=== PATIENT | female | born 1955 | race Caucasian/White ===

== ENCOUNTER 2017-07-04 15:47 | Inpatient (IN) | payer SELFPAY ==
[2017-07-04] MEDS ORDERED: Sterile Water 10 ML ONE (16:21)
[2017-07-04] MEDS ORDERED: Sodium Chloride 0.9% 200 ML ONE (16:21)
[2017-07-04] MEDS ORDERED: Azithromycin 500 MG VIAL ONE (16:21)
[2017-07-04] MEDS ORDERED: cefTRIAXone\\ROCEPHIN 1 GM VIAL ONE (16:21)
[2017-07-04] MEDS ORDERED: Magnesium Sulfate 2 GM/100 ML BAG ONE (16:21)
[2017-07-04] MEDS ORDERED: methylPREDNISolone Sod Succ/PF 125 MG/2 ML VIAL ONE (16:21)
[2017-07-04] MEDS ORDERED: ISOVUE-370 76%-LOCM 1 ML ONE (16:37)
[2017-07-04 16:48] LABS: Mean Platelet Volume 8.2 fL (7.4-10.4); Red Blood Cell (RBC) Count 5.21 mill/uL (4.20-5.40)
[2017-07-04 17:08] LABS: Band 3 % (5-11); Neutrophil 58 % (42-75); Reactive Lymphocytes 7 % (0-10)
[2017-07-04] MEDS ORDERED: Albuterol Sulfate 2.5 mg/3 ml Neb ONE ×2 (17:53→17:56)
[2017-07-04] MEDS ORDERED: Ketorolac Tromethamine 30 MG/ML VIAL ONE (18:17)
[2017-07-04 18:19] LABS: Lactic Acid - Sepsis 2.7 mmol/L (0.5-2.2)
[2017-07-04 18:21] LABS: ALT (SGPT) 12 U/L (8-55); AST (SGOT) 18 U/L (5-34); Alkaline Phosphatase 71 U/L (40-150); Anion Gap 16 mmol/L (10-20); BUN (Urea Nitrogen) 7 mg/dL (9.8-20.1); Bilirubin, Total 0.2 mg/dL (0.2-1.2); CK (CPK) 109 U/L (29-168); Calc. Creatinine Clearance 0 mL/min (70-130); Calcium 8.9 mg/dL (7.8-10.44); Carbon Dioxide 21 mmol/L (23-31); Chloride 108 mmol/L (98-107); Estimated GFR-MDRD 88; Globulin 2.9 g/dL (2.4-3.5); Protein, Total 6.9 g/dL (6.0-8.3)
[2017-07-04 18:26] LABS: Troponin I Less than 0.010 ng/mL (< 0.028)
--- NOTE | 2017-07-04 19:16 | RAD ---
PA AND LATERAL CHEST: Date: 07-04-17 History: Dyspnea, history of COPD. Patient has had difficulty breathing for 4-5 days. Patient also n otes midback pain. Comparison: 04-27-13, 02-17-16 FINDINGS: Cardiac silhouette and pulmonary vasculature are within normal limits. The lungs are clear. There is eventration of the hemidiaphragm in the midline and left upper quadrant. Parenchymal opacity in the right midlung zone noted on more recent study of 02-17-16 is no longer seen on this exam and the danuta gs are clear on the current study. Minimal degenerative change is seen in the thoracic spine. Remote healed fracture right proximal humerus is again present. IMPRESSION: No acute cardiopulmonary process. POS: ROSA
[2017-07-04] MEDS ORDERED: Acetaminophen 325 MG TAB PO PRN (19:36)
[2017-07-04] MEDS ORDERED: Bisacodyl 5 MG TAB PO PRN (19:36)
[2017-07-04] MEDS ORDERED: Acetaminophen 650 MG Suppository PR PRN (19:36)
[2017-07-04 20:02] LABS: Bilirubin Negative (Negative); Blood, Urine Negative (Negative); Glucose, Urine (Dipstick) Negative (Negative); Ketone, Urine Negative (Negative); Nitrite Negative (Negative); Protein, Urine (Dipstick) Negative (Neg-Trace); Urobilinogen 0.2 mg/dL (0.2-1.0)
--- NOTE | 2017-07-04 20:09 | HP ---
PRIMARY CARE PHYSICIAN: Marcos Reinoso. CHIEF COMPLAINT: Shortness of breath. HISTORY OF PRESENT ILLNESS: Ms. Smith is a pleasant 61-year-old lady who was seen at [facility] on 07/04/2017. She reports that she has had difficulty breathing over the last 4-5 days. She reports that it has b een progressively worsening. She also reports pain in her midback. She denies fevers. She reports cough. She does not think that there is any sputum. She took DayQuil with no relief. She came to the emergency room because of ongoing shortness of breath and cough. In terms of the back pain, she is unable to characterize it further. The following complete review of systems was negative, unless otherwise mentioned in the HPI or belo w: Constitutional: Weight loss or gain, sense of well-being, ability to conduct usual activities, exer cise tolerance. Skin/Breast: Rash, itching, changes in hair growth or loss, nail changes, breast lumps, tenderness, swelling, nipple discharge. Eyes: Vision, double vision, tearing, blind spots, pain. ENT/Mouth: Headaches (location, time of onset, duration, precipitating factors), vertigo, lighthead edness, injury. Vision, double vision, tearing, blind spots, pain, nose bleeding, colds, obstruction , discharge, dental difficulties, gingival bleeding, dentures, neck stiffness, pain, tenderness, mas ses in thyroid or other areas. Cardiovascular: Precordial pain, substernal distress, palpitations, syncope, dyspnea on exertion, o rthopnea, nocturnal paroxysmal dyspnea, edema, cyanosis, hypertension, heart murmurs, varicosities, phlebitis, claudication. Respiratory: Pain, shortness of breath, wheezing, stridor, cough, hemoptysis, fever or night sweats . Gastrointestinal: Poor appetite, dysphagia, indigestion, abdominal pain, heartburn, eructation, yancy sea, vomiting, hematemesis, jaundice, constipation, or diarrhea, abnormal stools (rodri-colored, gail y, bloody, greasy, foul smelling), flatulence, hemorrhoids, recent changes in bowel habits. Genitourinary: Urgency, frequency, dysuria, nocturia, hematuria, polyuria, oliguria, unusual (or ch archie in) color of urine, stones, hesitancy, change in size of stream, dribbling, acute retention or incontinence, libido, potency. Musculoskeletal: Pain, swelling, redness or heat of muscles or joints, limitation, of motion, muscu lar weakness, atrophy, cramps. Neurologic/Psychiatric: Convulsions, paralyses, tremor, incoordination, paraesthesias, difficulties with memory of speech, sensory or motor disturbances, or muscular coordination (ataxia, tremor), em otional problems, anxiety, depression, previous psychiatric care, unusual perceptions, hallucination s. Allergy/Immunologic: Skin rash, anemia, bleeding tendency, polydipsia, polyuria, intolerance to hea t or cold. PAST MEDICAL HISTORY: Significant for chronic obstructive pulmonary disease, hypertension, and toba account information clerk use. PAST SURGICAL HISTORY: Significant for lumpectomy and removal of cyst from her arm. ALLERGIES: No known drug allergies. CURRENT MEDICATIONS: Lisinopril 10 mg daily, ProAir HFA 90 mcg 2 puffs as needed, Ventolin nebulize rs every 6 hours as needed. SOCIAL HISTORY: The patient smokes half to 1 pack of cigarettes a day. She drinks 2-3 beers a day. She denies recreational drug use. FAMILY HISTORY: No family history of premature coronary artery disease. PHYSICAL EXAMINATION: GENERAL: On examination, Ms. Smith is awake and alert, in respiratory distress. VITAL SIGNS: She is breathing at rate of 22 and saturating 100% on BiPAP. Her respiratory rate ear lier was 32. She is afebrile. Blood pressure is 166/107, pulse is 98. She is afebrile. EYES: No scleral icterus, no conjunctival pallor. ENT: Moist mucosal membranes, no oropharyngeal erythema or exudates. NECK: Supple, nontender, trachea midline, no thyromegaly. RESPIRATORY: Accessory muscles of breathing are active. Chest wall movements are symmetric bilater ally. LUNGS: Clear to auscultation without wheeze, rhonchi or crepitations. Markedly diminished entry of air at both lung bases. CARDIOVASCULAR: S1 and S2 are heard, regular. Peripheral pulses palpable. No carotid bruit, no pe ricardial rub. ABDOMEN: Soft, nontender. Bowel sounds heard, no hepatomegaly, no splenomegaly. LYMPHATIC: No cervical lymphadenopathy. SKIN: No rashes or subcutaneous nodules. PSYCHIATRIC: Anxious mood, patient is oriented to time, place and person. NEUROLOGIC: Cranial nerves II-XII are intact, deep tendon reflexes are 2+. MUSCULOSKELETAL: Power is 5/5 in all 4 extremities, normal range of movement at all major extremity joints. LABORATORY DATA: Ms. Smith's labs and investigations were reviewed. I reviewed her electrocardiog alexis, which shows sinus tachycardia, no ST changes to suggest an acute coronary syndrome. I also rev iewed her chest x-ray, which does not show any pulmonary infiltrates. Laboratory investigation show ed normal white count, elevated hemoglobin of 16.7, normal platelet count, normal sodium, decreased potassium of 3.4, normal creatinine, normal liver profile, elevated lactic acid of 2.7 and normal tr oponin I. ASSESSMENT AND PLAN: Ms. Smith is a pleasant 61-year-old lady who was seen at [facility] on 07/04/2017. Her problem list includes: 1. Acute respiratory failure: Most likely secondary to chronic obstructive pulmonary disease exace rbation. She is currently being treated with bilevel positive airway pressure machine. She will be admitted to the [facility]. 2. Chronic obstructive pulmonary disease exacerbation: We will treat with oxygen, steroids, bronch odilators, and antibiotics. Consult Pulmonology. 3. Hypertension: Resume home medications, monitor vital signs and titrate antihypertensives as nee ded. 4. Tobacco use: Patient has been counseled regarding tobacco cessation. Start replacement therapy . 5. Daily alcohol abuse: Start ASE protocol. 6. Hypokalemia: Replace potassium. Many thanks for allowing me to participate in your patient's care. Please feel free to contact me w ith any questions or concerns. LEVEL OF RISK: High. LEVEL OF COMPLEXITY: High.
[2017-07-04 20:15] LABS: Bacteria/HPF Rare-Few HPF (None Seen); Hyaline Casts/LPF NONE SEEN LPF (0-3 Hyaline); RBC/HPF 0-3 HPF (0-3)
[2017-07-04] MEDS: Nicotine 21 MG PATCH TD SCH (21:08)
--- NOTE | 2017-07-04 21:25 | CT ---
CT ANGIOGRAM THORAX WITH IV CONTRAST AND 3D RECONSTRUCTIONS: Date: 07-04-17 History: Dyspnea, difficulty breathing for 4-5 days. Mid back pain. FINDINGS: There are no filling defects seen in the pulmonary arteries to suggest a pulmonary embolus. Vascular calcifications are seen in the thoracic aorta, but the thoracic aorta is normal in caliber without evidence of an aortic dissection. Mediastinal structures have a normal CT appearance. There is dependent bibasilar atelectasis, but the lungs are otherwise clear. Visualized upper abdome n has a normal CT appearance. IMPRESSION: 1. No CT evidence of a pulmonary embolus. 2. Vascular calcifications in the thoracic aorta, but the thoracic aorta is normal in caliber withou t evidence of an aortic dissection. POS: ROSA
[2017-07-04] MEDS: NS 0.9% w/ 40 MEQ KCL 1,000 ML IV SCH (23:49)
[2017-07-05 00:08] LABS: Troponin I 0.014 ng/mL (< 0.028)
[2017-07-05 04:47] LABS: #Lymphocytes 0.6 thou/uL (1.20-3.40); #Monocytes 0.1 thou/uL (0.11-0.59); #Neutrophils 8.1 thou/uL (1.40-6.50); %Basophils 0.3 % (0.0-1.0); %Eosinophils 0.1 % (0.0-10.0); %Lymphocytes 6.3 % (21.0-51.0); %Monocytes 0.7 % (0.0-10.0); Hematocrit 46.6 % (36.0-47.0); Mean Platelet Volume 7.5 fL (7.4-10.4); Red Blood Cell (RBC) Count 4.88 mill/uL (4.20-5.40); White Blood Cell (WBC) Count 8.7 thou/uL (4.8-10.8)
[2017-07-05 05:27] LABS: Anion Gap 14 mmol/L (10-20); BUN (Urea Nitrogen) 10 mg/dL (9.8-20.1); Calc. Creatinine Clearance 82 mL/min (70-130); Calcium 8.8 mg/dL (7.8-10.44); Carbon Dioxide 24 mmol/L (23-31); Chloride 106 mmol/L (98-107); Estimated GFR-MDRD Greater than 90
[2017-07-05] MEDS: Enoxaparin Sodium 40 MG/0.4 ML SYRINGE SC SCH (08:45)
[2017-07-05] MEDS ORDERED: FLU VACC QS2017-18 36 mo. & older 0.5 ML SYRINGE IM ONE (09:00)
[2017-07-05] MEDS: NS 0.9% w/ 40 MEQ KCL 1,000 ML IV SCH (11:52)
--- NOTE | 2017-07-05 13:54 | PDOC.PN ---
- Subjective Encounter Start Date: 07/05/17 Encounter Start Time: 11:00 Pt seen for followup re: COPD exacerbation. Denies chest pain, nausea, vomiting or diarrhea. Dyspnea better. Still has cough. - Objective MAR Reviewed: Yes Vital Signs & Weight: Vital Signs (12 hours) Temp Pulse Resp BP BP Pulse Ox 07/05/17 12:58 109 H 20 100 07/05/17 11:39 97.9 F 94 16 165/90 H 100 07/05/17 08:44 88 171/97 H 07/05/17 07:35 97.6 F 88 22 H 100 07/05/17 07:30 97.6 F 97 16 175/85 H 100 07/05/17 06:43 82 18 99 07/05/17 04:00 98.1 F 80 20 130/67 100 Weight Admit Weight 124 lb 9.6 oz Weight 125 lb 6.4 oz I&O: 07/04/17 07/05/17 07/06/17 06:59 06:59 06:59 Intake Total 1465 1485 Output Total 350 350 Balance 1115 1135 Result Diagrams: 07/05/17 04:05 07/05/17 04:05 EKG Reviewed by me: Yes (Tele: NSR) Phys Exam - Physical Examination Constitutional: NAD HEENT: moist MMs, oral pharynx no lesions Neck: supple Respiratory: no wheezing, no rales, no rhonchi, clear to auscultation bilateral Diminished air entry [place] Cardiovascular: RRR, no rub Gastrointestinal: soft, non-tender, no distention, positive bowel sounds Musculoskeletal: pulses present Neurological: moves all 4 limbs Lymphatic: no nodes Psychiatric: normal affect, A&O x 3 Skin: no rash, normal turgor, cap refill <2 seconds Dx/Plan (1) COPD exacerbation Code(s): J44.1 - CHRONIC OBSTRUCTIVE PULMONARY DISEASE W (ACUTE) EXACERBATION Status: Acute (2) CKD (chronic kidney disease) stage 2, GFR 60-89 ml/min Code(s): N18.2 - CHRONIC KIDNEY DISEASE, STAGE 2 (MILD) Status: Chronic (3) Hypertension Code(s): I10 - ESSENTIAL (PRIMARY) HYPERTENSION Status: Chronic (4) Tobacco dependence Code(s): F17.200 - NICOTINE DEPENDENCE, UNSPECIFIED, UNCOMPLICATED Status: Chronic (5) Hypokalemia Code(s): E87.6 - HYPOKALEMIA Status: Resolved - Plan continue antibiotics, PT/OT, out of bed/ambulate, DVT proph w/lovenox * . Continue IV ceftriaxone, azithromycin. Continue steroids, bronchodilators, oxygen. Pt is off of Bilevel PAP. Monitor vital signs and titrate antihypertensives as needed. Continue nicotine replacement therapy. Review of Systems - Review of Systems Constitutional: negative: Fever, Chills, Sweats, Weakness, Malaise Respiratory: Cough, SOB with Excertion. negative: Dry, Shortness of Breath, Hemoptysis, Pleuritic Pain, Sputum, Wheezing Cardiovascular: negative: Chest Pain, Palpitations, Orthopnea, Paroxysmal Noc. Dyspnea, Edema, Light Headedness Gastrointestinal: negative: Nausea, Vomiting, Abdominal Pain, Diarrhea, Constipation, Melena, Hematochezia Genitourinary: negative: Dysuria, Frequency, Incontinence, Hematuria, Retention - Medications/Allergies Allergies/Adverse Reactions: Allergies Allergy/AdvReac Type Severity Reaction Status Date / Time No Known Allergies Allergy Verified 04/27/13 23:32 Medications: Current Medications Acetaminophen (Tylenol) 650 mg PO Q4H PRN PRN Reason: Headache/Fever or Pain Acetaminophen (Tylenol) 650 mg [place] Q4H PRN PRN Reason: Headache/Fever or Pain Albuterol/Ipratropium (Duoneb) 3 ml NEB [id number] PRN PRN Reason: SOB &/or Wheezing Albuterol/Ipratropium (Duoneb) 3 ml NEB [id number] RENITA Last Admin: 07/05/17 12:58 Dose: 3 ml Bisacodyl (Dulcolax) 10 mg PO DAILYPRN PRN PRN Reason: Constipation Enoxaparin Sodium (Lovenox) 40 mg SC 0900 RENITA Last Admin: 07/05/17 08:45 Dose: 40 mg Hydralazine HCl (Apresoline) 10 mg SLOW IVP Q6H PRN PRN Reason: SBP Greater Than 170 Last Admin: 07/05/17 08:44 Dose: 10 mg Azithromycin 500 mg/ Sodium (Chloride) 250 mls @ 250 mls/hr IVPB 1800 REINTA Ceftriaxone Sodium 1 gm/ (Sodium Chloride) 100 mls @ 200 mls/hr IVPB 1700 RENITA Potassium Chloride/Sodium Chloride (Ns 0.9% W/ 40 Meq Kcl) 1,000 mls @ 75 mls/ hr IV .[id number] [facility] Last Admin: 07/05/17 11:52 Dose: 1,000 mls Lisinopril (Zestril) 10 mg PO DAILY [facility] Methylprednisolone Sodium Succinate (Solu-Medrol) 40 mg IVP Q6HR [facility] Last Admin: 07/05/17 11:50 Dose: 40 mg Mometasone Furoate/Formoterol Fumar (Dulera 200 Mcg/5 Mcg Inhaler) 2 puff INH BID-RT [facility] Nicotine (Nicoderm Patch) 21 mg TD Q24HR [facility] Last Admin: 07/04/17 21:08 Dose: Not Given Sodium Chloride (Flush - Normal Saline) 10 ml IVF Q12HR [facility] Last Admin: 07/05/17 08:53 Dose: Not Given Sodium Chloride (Flush - Normal Saline) 10 ml IVF PRN PRN PRN Reason: Saline Flush
[2017-07-05] MEDS ORDERED: cefTRIAXone\\ROCEPHIN 1 GM in Sodium Chloride 0.9% 100 ML IVPB SCH (17:00)
[2017-07-05] MEDS ORDERED: Azithromycin 500 MG in Sodium Chloride 0.9% 250 ML 250 ML IVPB SCH (18:00)
[2017-07-05] MEDS ORDERED: Mometasone/Formoterol 120 PUFF INHALER INH SCH (18:30)
[2017-07-05] MEDS ORDERED: Melatonin 3 MG TAB PO PRN (19:56)
--- NOTE | 2017-07-05 20:05 | CON ---
DATE OF CONSULTATION: 07/05/2017 HISTORY OF PRESENT ILLNESS: Ms. Smith is a 61-year-old female. She has been here before with COPD exacerbation. She has never seen Pulmonary physician. Her last admission here was in January of last year. She smoked as much as 2 packs a day, but it is down to a pack or less a day. She presented with shortness of breath, requiring aggressive respiratory care. She says she is impr ronen. She wants to move out of the intermediate care unit, so she can see one of her grandchildren. PAST MEDICAL HISTORY: Remarkable for hypertension, smoking, and breast lumpectomy. MEDICATIONS: She is on lisinopril and does not have a nebulizer at home. She is only on Advair p.r .n. FAMILY HISTORY: Negative for lung disease at an early age. REVIEW OF SYSTEMS: Otherwise, negative except for purulent sputum, but she says it is improving. PHYSICAL EXAMINATION: VITAL SIGNS: She is afebrile, heart rate 95, respiratory rate 16, oximetry is 100% on 2 liters, blo od pressure 147/73. HEENT: Pupils are equal. Sclerae are anicteric. Dentition is poor. NECK: Supple. LUNGS: Remarkable for diffuse wheezes. HEART: Regular rhythm. S1 and S2 are normal. ABDOMEN: Soft and nontender. EXTREMITIES: Without clubbing, cyanosis, or edema. IMAGING: Chest CT angiogram shows atherosclerotic changes of her aorta, but no infiltrates, no thro mboembolic disease. LABORATORY DATA: White count 8.7, hemoglobin 15.1, platelets 213,000. Electrolytes are normal. IMPRESSION: Chronic obstructive pulmonary disease exacerbation with ongoing tobacco. PLAN: Add Wellbutrin. She does not need to be on IV antibiotics. We will decrease her steroid dos ing. We will transfer her out of the IMU to a medical bed.
[2017-07-05] MEDS: Nicotine 21 MG PATCH TD SCH (20:32)
[2017-07-05] MEDS: Bupropion 150 MG SR TAB PO SCH (20:32)
[2017-07-05] MEDS: Cefuroxime Axetil 250 MG TAB PO SCH (20:32)
[2017-07-05] MEDS ORDERED: Non-Formulary Item 1 EACH (Fluticasone/Salmeterol [Advair Diskus 250/50] 1 INH) IH SCH (21:00)
[2017-07-06] MEDS: NS 0.9% w/ 40 MEQ KCL 1,000 ML IV SCH ×3 (00:34→17:52)
[2017-07-06 05:53] LABS: Anion Gap 11 mmol/L (10-20); BUN (Urea Nitrogen) 8 mg/dL (9.8-20.1); Calc. Creatinine Clearance 87 mL/min (70-130); Calcium 9.3 mg/dL (7.8-10.44); Carbon Dioxide 22 mmol/L (23-31); Chloride 109 mmol/L (98-107); Estimated GFR-MDRD Greater than 90
[2017-07-06 06:21] LABS: Band 12 % (5-11); Hematocrit 49.4 % (36.0-47.0); Mean Platelet Volume 8.4 fL (7.4-10.4); Metamyelocyte 1 % (0-0); Neutrophil 79 % (42-75); Reactive Lymphocytes 1 % (0-10); Red Blood Cell (RBC) Count 5.09 mill/uL (4.20-5.40)
[2017-07-06 06:34] VITALS: BMI 21.2
[2017-07-06] MEDS: Bupropion 150 MG SR TAB PO SCH ×2 (08:04→20:32)
[2017-07-06] MEDS: Cefuroxime Axetil 250 MG TAB PO SCH ×2 (08:05→20:32)
[2017-07-06] MEDS: Lisinopril 10 MG TAB PO SCH (08:05)
[2017-07-06] MEDS: Enoxaparin Sodium 40 MG/0.4 ML SYRINGE SC SCH (08:06)
[2017-07-06] MEDS ORDERED: Lisinopril 20 MG TAB PO SCH (09:00)
--- NOTE | 2017-07-06 10:57 | PDOC.PN ---
- Subjective Encounter Start Date: 07/06/17 Encounter Start Time: 09:00 Pt seen for followup re; COPD exacerbation. - Objective Vital Signs & Weight: Vital Signs (12 hours) Temp Pulse Resp BP BP Pulse Ox 07/06/17 10:31 120 H 20 94 L 07/06/17 08:05 172/80 H 07/06/17 08:00 98.1 F 102 H 20 93 L 07/06/17 07:10 116 H 20 95 07/06/17 05:17 79 184/95 H 07/06/17 04:00 97.5 F L 81 18 184/95 H 94 L 07/06/17 00:00 97.8 F 80 18 170/94 H 97 Weight Admit Weight 124 lb 9.6 oz Weight 124 lb 4.8 oz I&O: 07/05/17 07/06/17 07/07/17 06:59 06:59 06:59 Intake Total 1465 4325 Output Total 350 1950 Balance 1115 2375 Result Diagrams: 07/06/17 04:34 07/06/17 04:34 Phys Exam - Physical Examination Constitutional: NAD HEENT: moist MMs Neck: supple Respiratory: no rales, no rhonchi, wheezing present Cardiovascular: RRR Gastrointestinal: soft, positive bowel sounds Musculoskeletal: pulses present Neurological: moves all 4 limbs Psychiatric: normal affect Skin: no rash Dx/Plan (1) COPD exacerbation Code(s): J44.1 - CHRONIC OBSTRUCTIVE PULMONARY DISEASE W (ACUTE) EXACERBATION Status: Acute (2) Leucocytosis Code(s): D72.829 - ELEVATED WHITE BLOOD CELL COUNT, UNSPECIFIED Status: Acute (3) Hypertension Code(s): I10 - ESSENTIAL (PRIMARY) HYPERTENSION Status: Chronic (4) Tobacco dependence Code(s): F17.200 - NICOTINE DEPENDENCE, UNSPECIFIED, UNCOMPLICATED Status: Chronic (5) CKD (chronic kidney disease) stage 2, GFR 60-89 ml/min Code(s): N18.2 - CHRONIC KIDNEY DISEASE, STAGE 2 (MILD) Status: Resolved - Plan continue antibiotics, PT/OT, out of bed/ambulate, DVT proph w/lovenox * . Mobilize pt. Continue oxygen, steroids, bronchodilators. Try to wean off supplemental oxygen. Leucocytosis likely due to steroids, monitor counts, continue cefuroxime. Continue nicotine replacement therapy. Review of Systems - Review of Systems Constitutional: negative: Fever, Chills, Sweats, Weakness, Malaise Respiratory: Cough, Shortness of Breath, SOB with Excertion. negative: Dry, Hemoptysis, Pleuritic Pain, Sputum, Wheezing Cardiovascular: negative: Chest Pain, Palpitations, Orthopnea, Paroxysmal Noc. Dyspnea, Edema, Light Headedness - Medications/Allergies Allergies/Adverse Reactions: Allergies Allergy/AdvReac Type Severity Reaction Status Date / Time No Known Allergies Allergy Verified 04/27/13 23:32 Medications: Current Medications Acetaminophen (Tylenol) 650 mg PO Q4H PRN PRN Reason: Headache/Fever or Pain Acetaminophen (Tylenol) 650 mg [place] Q4H PRN PRN Reason: Headache/Fever or Pain Albuterol/Ipratropium (Duoneb) 3 ml NEB [id number] PRN PRN Reason: SOB &/or Wheezing Albuterol/Ipratropium (Duoneb) 3 ml NEB [id number] SCH Last Admin: 07/06/17 10:31 Dose: 3 ml Bisacodyl (Dulcolax) 10 mg PO DAILYPRN PRN PRN Reason: Constipation Bupropion HCl (Wellbutrin Sr) 150 mg PO BID [facility] Last Admin: 07/06/17 08:04 Dose: 150 mg Cefuroxime Axetil (Ceftin) 250 mg PO Q12HR [facility] Last Admin: 07/06/17 08:05 Dose: 250 mg Enoxaparin Sodium (Lovenox) 40 mg SC 0900 [facility] Last Admin: 07/06/17 08:06 Dose: Not Given Hydralazine HCl (Apresoline) 10 mg SLOW IVP Q6H PRN PRN Reason: SBP Greater Than 170 Last Admin: 07/06/17 05:17 Dose: 10 mg Potassium Chloride/Sodium Chloride (Ns 0.9% W/ 40 Meq Kcl) 1,000 mls @ 75 mls/ hr IV .[id number] [facility] Last Admin: 07/06/17 02:25 Dose: 1,000 mls Lisinopril (Zestril) 10 mg PO DAILY [facility] Last Admin: 07/06/17 08:05 Dose: 10 mg Melatonin (Melatonin) 3 mg PO HS PRN PRN Reason: Insomnia Last Admin: 10/10/17 20:32 Dose: 3 mg Methylprednisolone Sodium Succinate (Solu-Medrol) 20 mg IVP Q6HR [facility] Last Admin: 07/06/17 05:18 Dose: 20 mg Nicotine (Nicoderm Patch) 21 mg TD Q24HR [facility] Last Admin: 07/05/17 20:32 Dose: Not Given Sodium Chloride (Flush - Normal Saline) 10 ml IVF Q12HR [facility] Last Admin: 07/06/17 08:06 Dose: 10 ml Sodium Chloride (Flush - Normal Saline) 10 ml IVF PRN PRN PRN Reason: Saline Flush
[2017-07-06] MEDS ORDERED: guaiFENesin 100 MG/5 ML UDCUP PO PRN (12:22)
[2017-07-06] MEDS ORDERED: Diabetic Tussin 200 MG/10 ML UDCUP PO PRN (12:37)
[2017-07-06] MEDS ORDERED: Guaifenesin DM 100-10/5 ML UDCUP PO PRN (13:02)
--- NOTE | 2017-07-06 17:34 | PRG ---
DATE OF SERVICE: 07/06/2017 SUBJECTIVE: Mrs. Smith says she feels tiny bit better, but still gets quite short of breath walkin g to the bathroom. OBJECTIVE: VITAL SIGNS: She is afebrile, heart rate is 90, respiratory rate 16, oximetry 95, blood pressure 15 0/87. LUNGS: She still has tight wheezes diffusely. HEART: Regular rhythm. ABDOMEN: soft. IMPRESSION: Chronic obstructive pulmonary disease exacerbation. She wants cough syrup, so I have p laced an order for Robitussin-DM. She also wants to try some Mucinex. I have placed an order for t his. We will transition her into p.o. steroids in the morning. Hopefully, she is within a few days of being a candidate for discharge.
[2017-07-06] MEDS: guaiFENesin ER 600 MG TAB PO SCH (20:32)
[2017-07-06] MEDS: Nicotine 21 MG PATCH TD SCH (20:33)
[2017-07-07 05:48] LABS: #Lymphocytes 1.2 thou/uL (1.20-3.40); #Monocytes 0.4 thou/uL (0.11-0.59); %Eosinophils 0.2 % (0.0-10.0); %Lymphocytes 6.4 % (21.0-51.0); %Monocytes 1.9 % (0.0-10.0); Hematocrit 51.1 % (36.0-47.0); Mean Platelet Volume 7.6 fL (7.4-10.4); White Blood Cell (WBC) Count 18.6 thou/uL (4.8-10.8)
[2017-07-07 06:12] LABS: Anion Gap 10 mmol/L (10-20); BUN (Urea Nitrogen) 10 mg/dL (9.8-20.1); Calc. Creatinine Clearance 83 mL/min (70-130); Calcium 9.2 mg/dL (7.8-10.44); Carbon Dioxide 26 mmol/L (23-31); Chloride 105 mmol/L (98-107); Estimated GFR-MDRD Greater than 90
[2017-07-07] MEDS: guaiFENesin ER 600 MG TAB PO SCH (08:34)
[2017-07-07] MEDS: Lisinopril 10 MG TAB PO SCH (08:34)
[2017-07-07] MEDS: Enoxaparin Sodium 40 MG/0.4 ML SYRINGE SC SCH (08:35)
[2017-07-07] MEDS: Bupropion 150 MG SR TAB PO SCH (08:36)
[2017-07-07] MEDS: Cefuroxime Axetil 250 MG TAB PO SCH (08:36)
[2017-07-07 09:25] VITALS: TEMP 98.1
[2017-07-07 14:22] VITALS: BP 147/91
--- NOTE | 2017-07-07 16:47 | PDOC.PN ---
- Subjective Encounter Start Date: 07/07/17 Encounter Start Time: 07:15 Subjective: no sob, feels better, wants to go home - Objective MAR Reviewed: Yes Vital Signs & Weight: Vital Signs (12 hours) Temp Pulse Resp BP BP Pulse Ox 07/07/17 13:55 91 16 93 L 07/07/17 10:27 89 15 99 07/07/17 10:00 147/91 H 07/07/17 08:34 94 172/80 H 07/07/17 08:00 98.1 F 75 18 184/107 H 96 07/07/17 07:20 94 16 96 Weight Admit Weight 124 lb 9.6 oz Weight 126 lb I&O: 07/06/17 07/07/17 07/08/17 06:59 06:59 06:59 Intake Total 4325 960 Output Total 1950 Balance 2375 960 Result Diagrams: 07/07/17 05:07 07/07/17 05:07 Phys Exam - Physical Examination HEENT: PERRLA, moist MMs Neck: no JVD, supple Respiratory: no wheezing, no rales rhonchi++ Cardiovascular: RRR, no significant murmur Gastrointestinal: soft, non-tender, positive bowel sounds Musculoskeletal: no edema, pulses present Neurological: non-focal, moves all 4 limbs Psychiatric: A&O x 3 Dx/Plan (1) COPD exacerbation Code(s): J44.1 - CHRONIC OBSTRUCTIVE PULMONARY DISEASE W (ACUTE) EXACERBATION Status: Acute (2) Hypertension Code(s): I10 - ESSENTIAL (PRIMARY) HYPERTENSION Status: Chronic Qualifiers: Hypertension type: essential hypertension Qualified Code(s): I10 - Essential (primary) hypertension (3) Tobacco dependence Code(s): F17.200 - NICOTINE DEPENDENCE, UNSPECIFIED, UNCOMPLICATED Status: Chronic - Plan may dc home if ok with -: steroid taper, nebs -: will need outpt stress, has calcification in T.aorta on CTA -: counselled reg tob abuse * . Review of Systems - Medications/Allergies Allergies/Adverse Reactions: Allergies Allergy/AdvReac Type Severity Reaction Status Date / Time No Known Allergies Allergy Verified 04/27/13 23:32
--- NOTE | 2017-07-07 21:40 | DIS ---
DATE OF ADMISSION: 07/04/2017 DATE OF DISCHARGE: 07/07/2017 DISCHARGE DISPOSITION: To home. PRIMARY DISCHARGE DIAGNOSIS: Chronic obstructive pulmonary disease exacerbation with ongoing tobacc o abuse, resolving. SECONDARY DISCHARGE DIAGNOSIS: Hypertension. PROCEDURES DONE DURING HOSPITALIZATION: CT angio chest done on the day of admission showed no evide nce of PE. There were vascular calcifications seen in the thoracic aorta, but no aortic dissection was seen. Blood cultures x2 no growth. Urine culture no growth. Influenza A and B antigens were n egative. Patient had a discharge white count of 18 due to steroids. Troponin x3 was negative. DISCHARGE MEDICATIONS: Prednisone tapering dose starting at 40 mg daily over the course of 16 days, lisinopril 10 mg p.o. daily, DuoNeb q.i.d. p.r.n., Advair Diskus inhaler twice daily, Ceftin 250 mg twice daily for another 3 days, albuterol inhaler q.6 hourly p.r.n. ALLERGIES: No known drug allergies. INPATIENT CONSULTS: Dr. Davidson for pulmonology. DISCHARGE PLAN: The patient to follow up with primary care physician in 1 week. BRIEF COURSE DURING HOSPITALIZATION: The patient initially came in with complaints of shortness of breath and wheezing. She has known history of COPD with ongoing tobacco abuse. The patient was adm itted for COPD exacerbation with acute respiratory failure and hypoxia. She was initially placed in IMCU on BiPAP and later downgraded to medical floor. She was counseled adequately with regards to tobacco cessation. This morning, she is wanting to go home. Please note, the patient has calcifica tions seen in the thoracic aorta and would benefit from outpatient stress test via primary care phys ician. She is otherwise hemodynamically stable, ambulating and is off oxygen at present. She has b een cleared by Dr. Davidson for discharge today. Please see a [id number] documentation on [facility] f or the day of discharge.
== END 2017-07-07 14:20 | disposition home or self-care (01) | DRG 189 ==
LOC: ERS 15:47 → IMCU/EMU 19:19 → T4-A 07-05 17:50
PROVIDERS: ADMIT Internal Medicine; ATTEND Internal Medicine
PROC: 5A09457 Assistance with Respiratory Ventilation, 24-96 Consecutive Hours, Continuous Positive Airway Pressure (ICD-10-PCS; principal; 2017-07-04)
DX: J96.01 Acute respiratory failure with hypoxia (principal); J44.1 Chronic obstructive pulmonary disease with (acute) exacerbation; I12.9 Hypertensive chronic kidney disease with stage 1 through stage 4 chronic kidney disease, or unspecified chronic kidney disease; N18.2 Chronic kidney disease, stage 2 (mild); E87.6 Hypokalemia; F10.10 Alcohol abuse, uncomplicated; F17.210 Nicotine dependence, cigarettes, uncomplicated
CPT/HCPCS: 36415; 71020; 71275; 80048; 80053; 81003; 81015; 82550; 82553; 83605; 84484; 85025; 87040; 87086; 93005; 94640; 94644; 94660; 96365; 96367; 96375; A4216; J0360; J0456; J0696; J1650; J1885; J2920; J2930; J3475; J7050; J7611; J7620

== ENCOUNTER 2018-05-31 16:45 | Observation (INO) | payer OTHER, SELFPAY ==
--- NOTE | 2018-05-31 17:38 | RAD ---
CHEST PA AND LATERAL: 05/31/18 HISTORY: 62-year-old female with history of dyspnea with cough and shortness of breath. COMPARISON: 07/04/17. FINDINGS/IMPRESSION: Heart size is within normal limits. The lungs are clear. No pneumonia, edema, pleural effusion or oth er acute process. Stable from prior study. POS: RRE
[2018-05-31 18:28] LABS: #Basophils 0.1 thou/uL (0.0-0.2); #Eosinphils 0.1 thou/uL (0.0-0.7); #Lymphocytes 2.6 thou/uL (1.20-3.40); #Monocytes 0.6 thou/uL (0.11-0.59); #Neutrophils 5.1 thou/uL (1.40-6.50); %Basophils 1.4 % (0.0-1.0); %Lymphocytes 30.7 % (21.0-51.0); %Monocytes 6.8 % (0.0-10.0); %Neutrophils 60.1 % (42.0-75.0); Hemoglobin 15.6 g/dL (12.0-16.0); Mean Corpuscular HGB CONC 34.5 g/dL (32.0-36.0); Mean Corpuscular Volume 92.7 fL (78.0-98.0); Mean Platelet Volume 7.4 fL (7.4-10.4); Platelet Count 316 thou/uL (130-400); RBC Distribution Width 12.8 % (11.5-14.5); Red Blood Cell (RBC) Count 4.87 mill/uL (4.20-5.40); White Blood Cell (WBC) Count 8.5 thou/uL (4.8-10.8)
[2018-05-31 19:04] LABS: ALT (SGPT) 19 U/L (8-55); AST (SGOT) 25 U/L (5-34); Albumin 4.5 g/dL (3.4-4.8); Alkaline Phosphatase 62 U/L (40-150); Anion Gap 15 mmol/L (10-20); BUN (Urea Nitrogen) 8 mg/dL (9.8-20.1); Bilirubin, Total 0.6 mg/dL (0.2-1.2); Calc. Creatinine Clearance 0 mL/min (70-130); Calcium 9.4 mg/dL (7.8-10.44); Carbon Dioxide 29 mmol/L (23-31); Chloride 97 mmol/L (98-107); Estimated GFR-MDRD 72; Globulin 2.7 g/dL (2.4-3.5); Glucose 93 mg/dL (80-115); Potassium 3.7 mmol/L (3.5-5.1); Protein, Total 7.2 g/dL (6.0-8.3); Sodium 137 mmol/L (136-145)
[2018-05-31] MEDS ORDERED: methylPREDNISolone Sod Succ/PF 125 MG/2 ML VIAL ONE (20:14)
[2018-05-31] MEDS ORDERED: Acetaminophen 500 MG TAB ONE (20:31)
[2018-05-31 22:11] LABS: Actual Bicarbonate (HCO3a) 27.3 mEq/L (22-28); Base Excess (BEa) 2.4 mEq/L (-2.0 to +3.0); CO2 Tension 43.4 mmHg (35.0-45.0); Carboxyhemoglobin (COHb) 2.5 gm% (0.0-3.0); Hemoglobin (Hb) 15.5 g/dL (12.0-16.0); O2 Tension (PaO2) 63.5 mmHg (> 80.0); pH, Arterial 7.42 (7.35-7.45)
[2018-05-31 22:12] LABS: Analyzer IN Cardio ER; Calcium, Ionized 1.12 mmol/L (1.12-1.30); Potassium - ABG Lab 3.2 mmol/L (3.70-5.30); Puncture Site LRA
[2018-06-01] MEDS ORDERED: Acetaminophen 325 MG TAB PO PRN (00:32)
[2018-06-01] MEDS ORDERED: Ondansetron HCl/PF 4 MG/2 ML Vial IVP PRN (00:32)
[2018-06-01] MEDS ORDERED: Ondansetron ODT 4 MG TAB PO PRN (00:32)
[2018-06-01] MEDS ORDERED: Enoxaparin Sodium 40 MG/0.4 ML SYRINGE SC SCH (00:45)
[2018-06-01 03:32] VITALS: BMI 23.3
[2018-06-01 05:01] LABS: Anion Gap 14 mmol/L (10-20); BUN (Urea Nitrogen) 11 mg/dL (9.8-20.1); Calc. Creatinine Clearance 77 mL/min (70-130); Calcium 8.9 mg/dL (7.8-10.44); Carbon Dioxide 26 mmol/L (23-31); Chloride 98 mmol/L (98-107); Estimated GFR-MDRD 77; Glucose 153 mg/dL (80-115); Potassium 3.7 mmol/L (3.5-5.1); Sodium 134 mmol/L (136-145)
[2018-06-01 05:10] LABS: Band 10 % (5-11); Hemoglobin 14.6 g/dL (12.0-16.0); Lymphocytes 10 % (21-51); MDiff Complete? YES; Mean Corpuscular HGB CONC 34.7 g/dL (32.0-36.0); Mean Corpuscular Volume 92.4 fL (78.0-98.0); Mean Platelet Volume 7.5 fL (7.4-10.4); Neutrophil 80 % (42-75); PLT Morphology Comment Appears Adequate; Platelet Count 222 thou/uL (130-400); RBC Distribution Width 12.8 % (11.5-14.5); Red Blood Cell (RBC) Count 4.54 mill/uL (4.20-5.40); White Blood Cell (WBC) Count 6.8 thou/uL (4.8-10.8)
[2018-06-01] MEDS ORDERED: Mometasone/Formoterol 120 PUFF INHALER INH SCH ×2 (06:30→18:30)
[2018-06-01] MEDS ORDERED: Non-Formulary Item 1 EACH (Fluticasone/Salmeterol [Advair Diskus 250/50] 1 INH) IH SCH ×2 (09:00→21:00)
[2018-06-01] MEDS ORDERED: Lisinopril 10 MG TAB PO SCH (09:00)
[2018-06-01] MEDS ORDERED: PROVENTIL INHALER 6.7 G (200 INHALATIONS) INH PRN (10:21)
[2018-06-01] MEDS ORDERED: Famotidine 20 MG TAB PO SCH ×3 (10:23→21:00)
[2018-06-01 11:53] LABS: CKMB 4.5 ng/mL (0-6.6); Troponin I Less than 0.010 ng/mL (< 0.028)
--- NOTE | 2018-06-01 12:22 | HP ---
CHIEF COMPLAINT: Shortness of breath. HISTORIAN: The patient, reliable. HISTORY OF PRESENT ILLNESS: This 62-year-old female with past medical history of COPD and hypertension who presented to the ED with chief complaint of shortness of breath for 1 week. Per the patient, she was with the primary care physician today to receive oxygen tank; however, patient has been having difficulties. Therefore, patient was referred to the ED. The patient states that she has oxygen tank in her previous home in [place], but now patient has moved from [place] to [place] and the patient did not bring the oxygen tank. Patient states that walking makes her shortness of breath worse. In the past 2 days, it has really been difficult for patient to walk. Patient states that laying down makes her struggle. Patient is also reporting associated symptoms of nonproductive cough. No fever, no chills, no vomiting. Patient denies any sick contacts in the house; however, patient admits that she recently traveled from [place] to [place]. REVIEW OF SYSTEMS: Positive for shortness of breath, chest discomfort, cough, otherwise as documented in the HPI. All other systems are reviewed and are negative. PAST MEDICAL HISTORY: Hypertension, COPD. PAST SURGICAL HISTORY: The patient had left breast biopsy. SOCIAL HISTORY: Patient is a current tobacco smoker. Patient smoked half a pack per day. She has been smoking since she was a teenager. Patient lives at home with family. FAMILY HISTORY: Reviewed and noncontributory to this visit. ALLERGIES: No known drug allergies. MEDICATIONS: 1. Patient takes lisinopril/hydrochlorothiazide 20 mg/12.5 mg. 2. Albuterol. PHYSICAL EXAMINATION: VITAL SIGNS: Temperature 98.1, blood pressure 166/102, pulse 108, respiratory rate of 24. GENERAL: Patient is alert, oriented to person, place and time. Patient is speaking in full sentences. The patient has nasal cannula in place, but does not appear to be in distress. HEENT: Normocephalic, atraumatic. Pupils are equally round and reactive to light. Extraocular movements are intact. There is no scleral icterus. NECK: No JVD. Mucous membranes somewhat moist. LUNGS: The patient had mild wheezes bilaterally at the entry of the lung coyne. CARDIAC: Positive S1, S2, regular rate and rhythm. No murmurs, no gallops or rubs appreciated. ABDOMEN: Obese abdomen, positive bowel sounds in all quadrants. No tenderness noted. BACK: No tenderness. Good range of motion. EXTREMITIES: 5/5 upper extremity strength, 5/5 lower extremity strength. Good pulses in the upper and lower extremities bilaterally. NEUROLOGIC: Cranial nerves II-XII grossly intact. No neurologic deficits noted. SKIN: Warm, dry, and intact. IMAGIN. EKG sinus tachycardia at 109. 2. Chest x-ray showed no pneumonia, edema or pleural effusions or other acute processes. ED COURSE: The patient was given DuoNeb, Solu-Medrol. LABORATORY DATA: Patient's white count is 8.5, hemoglobin 15.6, hematocrit 45.1 , platelets was eosinophils 0.1. D-dimer less than 0.27. ABG: pH 7.4, pCO2 of 43.4, pO2 of 63, O2 sat is 92.5. Electrolytes: Sodium is 137, potassium is 3.7, chloride is 97, carbon dioxide 29, anion gap of 15, BUN of 8, creatinine 0.81. AST and ALT 25 and 19 respectively. ASSESSMENT AND PLAN: This is a 62-year-old female with past medical history of chronic obstructive pulmonary disease presenting with hypoxic respiratory failure. Patient's O2 was in the 80s. Patient is currently on oxygen. We will keep the patient on oxygen. We will give the patient some DuoNeb treatments. We will continue patient on steroids and will transition patient on steroid taper. 1. Chronic obstructive pulmonary disease exacerbation, most likely due to noncompliance. Patient uses oxygen at home; however, the patient does not have her oxygen at this time. We will get case management to evaluate the patient for oxygen. 2. Hypertension. We will manage the patient's blood pressure accordingly. 3. Deep vein thrombosis and gastrointestinal prophylaxis. MTDD
[2018-06-01] MEDS ORDERED: Fluticasone Propionate Nasal Spray 16 gm Bottle NASAL SCH (12:45)
--- NOTE | 2018-06-01 15:15 | PDOC.PN ---
- Subjective Encounter Start Date: 06/01/18 Encounter Start Time: 10:00 Subjective: pt up in bed no complains - Objective Resuscitation Status: Resuscitation Status FULL:Full Resuscitation Vital Signs & Weight: Vital Signs (12 hours) Temp Pulse Resp BP BP Pulse Ox 06/01/18 12:26 97.8 F 89 12 150/80 H 94 L 06/01/18 11:15 26 H 91 L 06/01/18 08:19 91 18 99 06/01/18 08:01 97.4 F L 76 14 161/114 H 96 06/01/18 08:00 97.4 F L 91 18 06/01/18 03:59 98.2 F 80 16 122/79 98 Weight Weight 140 lb 8 oz I&O: 05/31/18 06/01/18 06/02/18 06:59 06:59 06:59 Intake Total 450 Output Total 450 Balance 0 Result Diagrams: 06/01/18 04:21 06/01/18 04:21 Phys Exam - Physical Examination HEENT: PERRLA, TM's clear Respiratory: no wheezing, no rales, no rhonchi, wheezing present, clear to auscultation bilateral Cardiovascular: RRR, no significant murmur, no rub, gallop, irregular Gastrointestinal: soft, non-tender, no distention, positive bowel sounds Musculoskeletal: no edema, pulses present, edema present Neurological: non-focal, normal sensation, moves all 4 limbs Dx/Plan (1) SOB (shortness of breath) Code(s): R06.02 - SHORTNESS OF BREATH Status: Acute (2) Hypertension Code(s): I10 - ESSENTIAL (PRIMARY) HYPERTENSION Status: Chronic Qualifiers: (3) Tobacco dependence Code(s): F17.200 - NICOTINE DEPENDENCE, UNSPECIFIED, UNCOMPLICATED Status: Chronic - Plan pt up walking -: sounds like possible allergy will put pt on claritin and flonase -: bnp normal -: pt walked does not meet the need for oxygen she was 90-91% on ambulation -: but was tachypneic * . Review of Systems - Review of Systems ENT: negative: Ear Pain, Ear Discharge, Nose Pain, Nose Discharge, Nose Congestion, Mouth Pain, Mouth Swelling, Throat Pain, Throat Swelling, Other Respiratory: negative: Cough, Dry, Shortness of Breath, Hemoptysis, SOB with Excertion, Pleuritic Pain, Sputum, Wheezing Cardiovascular: negative: chest pain, palpitations, orthopnea, paroxysmal nocturnal dyspnea, edema, light headedness, other Gastrointestinal: negative: Nausea, Vomiting, Abdominal Pain, Diarrhea, Constipation, Melena, Hematochezia, Other - Medications/Allergies Allergies/Adverse Reactions: Allergies Allergy/AdvReac Type Severity Reaction Status Date / Time No Known Allergies Allergy Verified 04/27/13 23:32 Medications: Current Medications Acetaminophen (Tylenol) 650 mg PO Q4H PRN PRN Reason: Headache/Fever or Pain Albuterol Sulfate (Proventil Hfa) 2 puff INH Q6H PRN PRN Reason: SOB &/or Wheezing Albuterol/Ipratropium (Duoneb) 3 ml NEB QIDPRN PRN PRN Reason: SOB &/or Wheezing Bupropion HCl (Wellbutrin Sr) 150 mg PO BID [facility] Famotidine (Pepcid) 20 mg PO BID [facility] Fluticasone Propionate (Flonase Nasal [place]) 0 gm NASAL DAILY [facility] Levofloxacin 500 mg/ Device 100 mls @ 100 mls/hr IVPB Q24HR [facility] Last Admin: 06/01/18 01:04 Dose: 100 mls Lisinopril (Zestril) 10 mg PO DAILY [facility] Last Admin: 06/01/18 08:35 Dose: 10 mg Loratadine (Claritin) 10 mg PO DAILY [facility] Methylprednisolone Sodium Succinate (Solu-Medrol) 40 mg IVP DAILY [facility] Mometasone Furoate/Formoterol Fumar (Dulera 200 Mcg/5 Mcg Inhaler) 2 puff INH BID-RT [facility] Ondansetron HCl (Zofran Odt) 4 mg PO Q6H PRN PRN Reason: Nausea/Vomiting Ondansetron HCl (Zofran) 4 mg IVP Q6H PRN PRN Reason: Nausea/Vomiting Sodium Chloride (Flush - Normal Saline) 10 ml IVF Q12HR [facility] Last Admin: 06/01/18 08:35 Dose: 10 ml Sodium Chloride (Flush - Normal Saline) 10 ml IVF PRN PRN PRN Reason: Saline Flush
[2018-06-01 16:29] VITALS: BP 129/72; TEMP 98.1
[2018-06-01] MEDS ORDERED: Bupropion 100 MG SR TAB PO SCH (21:00)
[2018-06-01] MEDS ORDERED: Bupropion 150 MG SR TAB PO SCH (21:00)
--- NOTE | 2018-06-02 01:31 | DIS ---
CHIEF COMPLAINT: Shortness of breath. HISTORY OF PRESENT ILLNESS: Patient is a very pleasant 62-year-old female who actually came from [place] and then came into the hospital with shortness of breath. The patient states that she was r ecently diagnosed with COPD and was put on home oxygen; however, she returned her oxygen to her [place] in [place]. Patient was walked up and down, her sats never felt below 90%. Patient was treat ed with COPD exacerbation; however, her lungs appeared to be very significantly clear. She did, [place], have some really upper respiratory congestion, for which she was started on Claritin and Flonase . I think most likely this is the cause of her shortness of breath. Her BNP also was normal and a t roponin x1 was negative. Her D-dimer was also negative. DISCHARGE DIAGNOSES: 1. Shortness of breath, mild chronic obstructive pulmonary disease. 2. History of smoking. Patient still went down to smoke while she was in the hospital. 3. History of hypertension. HOME MEDICATIONS: As of the following: She is on fluticasone 1 b.i.d., albuterol 2 puffs q.6 hours p.r.n. She does have a nebulizer at home. Lisinopril and hydrochlorothiazide 1 tab b.i.d., DuoNeb 3 mL q.i.d. I am going to give her taper for 4 days Claritin 10 mg daily, levofloxacin 500 mg daily f or 4 days and fluticasone nasal spray 1 gram nasal daily and Pepcid 20 mg p.o. b.i.d. She will be discharged home. Followup PCP.
[2018-06-02] MEDS ORDERED: Fluticasone Propionate Nasal Spray 16 gm Bottle NASAL SCH ×2 (09:00)
[2018-06-02] MEDS ORDERED: Loratadine 10 MG TAB PO SCH (09:00)
--- NOTE | 2018-06-03 19:20 | EKG ---
Test Reason : Blood Pressure : / mmHG Vent. Rate : 109 BPM Atrial Rate : 109 BPM P-R Int : 134 ms QRS Dur : 076 ms QT Int : 332 ms P-R-T Axes : 082 073 068 degrees QTc Int : 447 ms Sinus tachycardia Possible Left atrial enlargement Borderline ECG Confirmed by JOSE LUIS KING DO ([id number]), online editor JULIETA STOUT ([id number]) on 06/03/2018 7:19:44 PM Referred By: Confirmed By:JOSE LUIS KING DO
== END 2018-06-01 17:54 | disposition home or self-care (01) ==
LOC: ERS 16:45 → 2SW 21:30
PROVIDERS: ADMIT Internal Medicine; ATTEND Internal Medicine
DX: J44.9 Chronic obstructive pulmonary disease, unspecified (principal); I10 Essential (primary) hypertension; F17.210 Nicotine dependence, cigarettes, uncomplicated; Z79.899 Other long term (current) drug therapy
CPT/HCPCS: 36415; 71046; 80048; 80053; 82553; 82805; 83880; 84484; 85007; 85025; 85027; 85379; 93005; 94640; 94664; 96365; 96372; 96374; 96375; 96376; A4216; G0378; J1650; J1956; J2920; J2930; J7620

== ENCOUNTER 2018-08-22 12:52 | Outpatient (CLI) | payer OTHER ==
--- NOTE | 2018-08-22 16:32 | RAD ---
CERVICAL SPINE SIX VIEWS: HISTORY: Left-sided neck pain. Cervicalgia. Tingling in the hands. FINDINGS: Multilevel degenerative changes are present. No fracture, subluxation, or bony destruction is identi fied. Neural foraminal stenosis is noted at the C4-C5 level. IMPRESSION: Cervical spondylosis. POS: OFF
== END 2018-08-22 12:53 | disposition home or self-care (01) ==
LOC: BICRAD 12:52
PROVIDERS: ATTEND Internal Medicine
DX: M54.2 Cervicalgia (principal); M47.812 Spondylosis without myelopathy or radiculopathy, cervical region
CPT/HCPCS: 72050

== ENCOUNTER 2019-01-02 13:23 | Outpatient (CLI) | payer OTHER ==
--- NOTE | 2019-01-02 14:38 | RAD ---
CHEST TWO VIEWS: History: Dyspnea. Comparison: 05-31-18 FINDINGS: Cardiac silhouette and pulmonary vasculature are unremarkable. Lungs remain hyperinflated. Mediastinu m is midline. No confluent airspace consolidation, pneumothorax or pleural fluid. Old right shoulder fracture. IMPRESSION: Pulmonary hyperinflation and other chronic type findings appear stable. POS: TPC
== END 2019-01-02 13:24 | disposition home or self-care (01) ==
LOC: RAD 13:23
PROVIDERS: ATTEND Internal Medicine Critical Care Medicine
DX: R06.00 Dyspnea, unspecified (principal)
CPT/HCPCS: 71046

== ENCOUNTER 2019-04-10 13:13 | Outpatient (CLI) | payer OTHER ==
--- NOTE | 2019-04-18 13:34 | MMO ---
Bilateral MAMMO Bilat Screen DDI. CLINICAL HISTORY: Patient is 63 years old and is seen for screening. The patient has no family history of breast cancer. The patient has no personal history of cancer. VIEWS: The views performed were: bilateral craniocaudal and bilateral mediolateral oblique. FILMS COMPARED: The present examination has been compared to a prior imaging study performed at [facility] on 03/23/2018. This study has been interpreted with the assistance of computer-aided detection. MAMMOGRAM FINDINGS: There are scattered fibroglandular densities. There are no suspicious masses, suspicious calcifications, or new areas of architectural distortion. IMPRESSION: THERE IS NO MAMMOGRAPHIC EVIDENCE OF MALIGNANCY. A ROUTINE FOLLOW-UP MAMMOGRAM IN 1 YEAR IS RECOMMENDED. ACR BI-RADS Category 1 - Negative MAMMOGRAPHY NOTE: 1. A negative mammogram report should not delay a biopsy if a dominant of clinically suspicious mass is present. 2. Approximately 10% to 15% of breast cancers are not detected by mammography. 3. Adenosis and dense breasts may obscure an underlying neoplasm. Reported by: DANIELLE TOLBERT MD Electonically Signed: [id number]
== END 2019-04-10 13:14 | disposition home or self-care (01) ==
LOC: SCSMAMMO 13:13
PROVIDERS: ATTEND Internal Medicine
DX: Z12.31 Encounter for screening mammogram for malignant neoplasm of breast (principal)
CPT/HCPCS: 77067

== ENCOUNTER 2019-05-01 12:50 | Emergency (ER) | payer OTHER ==
[2019-05-01] MEDS ORDERED: HYDROcodone/Acetaminophen 5/325 mg Tablet ONE (13:37)
[2019-05-01 13:55] LABS: #Basophils 0.1 thou/uL (0.0-0.2); #Eosinphils 0.1 thou/uL (0.0-0.7); #Lymphocytes 1.7 thou/uL (1.20-3.40); #Monocytes 0.5 thou/uL (0.11-0.59); #Neutrophils 4.5 thou/uL (1.40-6.50); %Basophils 0.8 % (0.0-1.0); %Eosinophils 1.3 % (0.0-10.0); %Monocytes 7.1 % (0.0-10.0); %Neutrophils 65.8 % (42.0-75.0); Hemoglobin 15.1 g/dL (12.0-16.0); Mean Corpuscular HGB CONC 33.1 g/dL (32.0-36.0); Mean Corpuscular Hemoglobin 31.1 pg (27.0-31.0); Mean Corpuscular Volume 93.9 fL (78.0-98.0); Mean Platelet Volume 7.8 fL (7.4-10.4); Platelet Count 188 thou/uL (130-400); RBC Distribution Width 12.4 % (11.5-14.5); Red Blood Cell (RBC) Count 4.85 mill/uL (4.20-5.40); White Blood Cell (WBC) Count 6.8 thou/uL (4.8-10.8)
[2019-05-01 14:16] LABS: ALT (SGPT) 9 U/L (8-55); AST (SGOT) 17 U/L (5-34); Albumin 4.2 g/dL (3.4-4.8); Alkaline Phosphatase 56 U/L (40-150); Anion Gap 10 mmol/L (10-20); BUN (Urea Nitrogen) 5 mg/dL (9.8-20.1); Bilirubin, Total 0.6 mg/dL (0.2-1.2); Calc. Creatinine Clearance 0 mL/min (70-130); Calcium 9.6 mg/dL (7.8-10.44); Carbon Dioxide 30 mmol/L (23-31); Chloride 103 mmol/L (98-107); Estimated GFR-MDRD 89; Globulin 2.6 g/dL (2.4-3.5); Glucose 106 mg/dL (80-115); Potassium 3.7 mmol/L (3.5-5.1); Protein, Total 6.8 g/dL (6.0-8.3); Sodium 139 mmol/L (136-145)
--- NOTE | 2019-05-01 14:33 | RAD ---
RIGHT ANKLE 3 VIEWS: Date: 05/01/19 INDICATION: Dog bite to ankle. Pain and swelling. Assess for foreign body. FINDINGS/IMPRESSION: Mild soft tissue swelling. Mild degenerative change at the ankle. No fracture or acute osseous abnorm ality. No evidence of radiopaque soft tissue foreign body identified. POS: CHAIM
== END 2019-05-01 15:26 | disposition home or self-care (01) ==
LOC: ERS 12:50
DX: S91.052A Open bite, left ankle, initial encounter (principal); L03.115 Cellulitis of right lower limb; I10 Essential (primary) hypertension; J44.9 Chronic obstructive pulmonary disease, unspecified; F17.210 Nicotine dependence, cigarettes, uncomplicated; Z79.51 Long term (current) use of inhaled steroids; Z79.899 Other long term (current) drug therapy; W54.0XXA Bitten by dog, initial encounter
CPT/HCPCS: 36415; 80053; 83605; 85025; 85652; 86140; 87040; 94640; 96360

== ENCOUNTER → 2019-05-06 | Day surgery (SDC) | payer OTHER ==
[~2019-05-06] MED LIST: Rabies Vaccine Human 2.5 UNITS VIAL IM ONE
== END ==
LOC: ER/OP 08:25
DX: Z23 Encounter for immunization (principal); I10 Essential (primary) hypertension; J44.9 Chronic obstructive pulmonary disease, unspecified
CPT/HCPCS: 90471; 90675

== ENCOUNTER 2020-03-24 09:57 | Outpatient (CLI) | payer OTHER ==
--- NOTE | 2020-03-24 10:33 | RAD ---
EXAM: Two views chest PROVIDED CLINICAL HISTORY: Cough. COMPARISON: 01/12/2019 FINDINGS: Cardiac silhouette and pulmonary vasculature are within normal limits. The lungs are clear. Remote r ight proximal humeral fracture deformity is present. Vascular calcifications are seen in the thoracic aorta. Chest is overall stable when compared to prior exam. IMPRESSION: No acute cardiopulmonary process.
== END 2020-03-24 09:58 | disposition home or self-care (01) ==
LOC: BICRAD 09:57
PROVIDERS: ATTEND Internal Medicine
DX: R05 Cough (principal)
CPT/HCPCS: 71046

== ENCOUNTER 2021-07-22 15:07 | Observation (INO) | payer MEDICARE, MEDICAID ==
[2021-07-22] MEDS ORDERED: Magnesium 2 GM/50 ML BAG (IN WATER) ONE (15:41)
[2021-07-22] MEDS ORDERED: methylPREDNISolone Sod Succ/PF 125 MG/2 ML VIAL ONE (15:41)
[2021-07-22 15:43] LABS: #Basophils 0.1 thou/uL (0.0-0.2); #Eosinphils 0.1 thou/uL (0.0-0.7); #Lymphocytes 2.1 thou/uL (1.20-3.40); #Monocytes 0.9 thou/uL (0.11-0.59); #Neutrophils 7.8 thou/uL (1.40-6.50); %Basophils 0.9 % (0.0-1.0); %Eosinophils 0.5 % (0.0-10.0); %Monocytes 7.9 % (0.0-10.0); %Neutrophils 71.8 % (42.0-75.0); Hemoglobin 16.2 g/dL (12.0-16.0); Mean Corpuscular HGB CONC 33.3 g/dL (32.0-36.0); Mean Corpuscular Hemoglobin 31.2 pg (27.0-31.0); Mean Corpuscular Volume 93.8 fL (78.0-98.0); Mean Platelet Volume 7.9 fL (7.4-10.4); Platelet Count 200 thou/uL (130-400); RBC Distribution Width 12.4 % (11.5-14.5); White Blood Cell (WBC) Count 10.8 thou/uL (4.8-10.8)
[2021-07-22] MEDS ORDERED: Albuterol 200 PUFF (6.7GM INHALER) ONE (16:02)
[2021-07-22 16:06] LABS: ALT (SGPT) 14 U/L (8-55); AST (SGOT) 18 U/L (5-34); Albumin 4.3 g/dL (3.4-4.8); Alkaline Phosphatase 58 U/L (40-110); Anion Gap 14 mmol/L (10-20); BUN (Urea Nitrogen) 10 mg/dL (9.8-20.1); Bilirubin, Total 0.6 mg/dL (0.2-1.2); Calc. Creatinine Clearance 0 mL/min (70-130); Calcium 9.6 mg/dL (7.8-10.44); Carbon Dioxide 27 mmol/L (23-31); Chloride 100 mmol/L (98-107); Globulin 2.8 g/dL (2.4-3.5); Glucose 94 mg/dL (80-115); Potassium 4.2 mmol/L (3.5-5.1); Protein, Total 7.1 g/dL (5.8-8.1); Sodium 137 mmol/L (136-145)
[2021-07-22 18:27] LABS: SARS-CoV-2 NAA Rapid Test Not Detected (NotDetected)
[2021-07-22] MEDS ORDERED: Ondansetron ODT 4 MG TAB PO PRN (18:37)
[2021-07-22] MEDS ORDERED: Guaifenesin DM 100-10/5 ML UDCUP PO PRN (18:37)
[2021-07-22] MEDS ORDERED: Acetaminophen 325 MG TAB PO PRN (18:37)
[2021-07-22] MEDS ORDERED: Senokot S 8.6-50 MG TAB PO PRN (18:37)
[2021-07-22] MEDS ORDERED: Bisacodyl 5 MG TAB PO PRN (18:37)
[2021-07-22] MEDS ORDERED: Ondansetron PF 4 MG/2 ML Vial IVP PRN (18:37)
[2021-07-22] MEDS ORDERED: Acetaminophen 650 MG Suppository PR PRN (18:37)
[2021-07-22 18:56] LABS: Bilirubin Negative (Negative); Blood, Urine Negative (Negative); Clarity Clear (Clear); Glucose, Urine (Dipstick) Normal (Negative); Ketone, Urine 10 mg/dL (Negative); Leukocyte Negative Leu/uL (Negative); Nitrite Negative (Negative); Protein, Urine (Dipstick) Negative (Neg-Trace); Specific Gravity, Urine 1.006 (1.002-1.036); Urobilinogen Normal mg/dL (Less than 2)
[2021-07-22] MEDS ORDERED: Nicotine 14 MG PATCH TD SCH (20:00)
[2021-07-22] MEDS ORDERED: Azithromycin 500 MG in Sodium Chloride 0.9% 250 ML 250 ML IVPB SCH (20:00)
[2021-07-22 21:22] LABS: Legionella Urinary Ag Negative (Negative); Strep pneumo Urine Ag NEGATIVE (NEGATIVE)
[2021-07-22 22:21] VITALS: BMI 22.3
[2021-07-22] MEDS: Famotidine 20 MG TAB PO SCH (22:22)
[2021-07-22] MEDS: methylPREDNISolone Sod Succ/PF 125 MG/2 ML VIAL IVP SCH (23:15)
[2021-07-23 04:51] LABS: #Basophils 0.1 thou/uL (0.0-0.2); #Lymphocytes 0.4 thou/uL (1.20-3.40); #Neutrophils 4.7 thou/uL (1.40-6.50); %Basophils 1.3 % (0.0-1.0); %Eosinophils 0.1 % (0.0-10.0); %Lymphocytes 7.9 % (21.0-51.0); %Monocytes 0.8 % (0.0-10.0); %Neutrophils 89.8 % (42.0-75.0); Mean Corpuscular HGB CONC 33.6 g/dL (32.0-36.0); Mean Corpuscular Hemoglobin 32.1 pg (27.0-31.0); Mean Corpuscular Volume 95.5 fL (78.0-98.0); Mean Platelet Volume 7.7 fL (7.4-10.4); Platelet Count 178 thou/uL (130-400); RBC Distribution Width 12.3 % (11.5-14.5); White Blood Cell (WBC) Count 5.2 thou/uL (4.8-10.8)
[2021-07-23 05:07] LABS: ALT (SGPT) 12 U/L (8-55); AST (SGOT) 13 U/L (5-34); Albumin 3.9 g/dL (3.4-4.8); Alkaline Phosphatase 53 U/L (40-110); Anion Gap 14 mmol/L (10-20); BUN (Urea Nitrogen) 9 mg/dL (9.8-20.1); Bilirubin, Total 0.4 mg/dL (0.2-1.2); Calc. Creatinine Clearance 80 mL/min (70-130); Carbon Dioxide 24 mmol/L (23-31); Chloride 104 mmol/L (98-107); Globulin 2.5 g/dL (2.4-3.5); Glucose 151 mg/dL (80-115); Potassium 3.9 mmol/L (3.5-5.1); Protein, Total 6.4 g/dL (5.8-8.1); Sodium 138 mmol/L (136-145)
[2021-07-23 05:26] LABS: Hep C IgG Ab Non-Reactive (NonReactive); Hep C Index 0.05 S/CO (0-0.79)
[2021-07-23] MEDS: methylPREDNISolone Sod Succ/PF 125 MG/2 ML VIAL IVP SCH ×2 (05:53→11:20)
[2021-07-23] MEDS: Famotidine 20 MG TAB PO SCH (08:36)
[2021-07-23] MEDS ORDERED: Non-Formulary Item 1 EACH (Lisinopril [Lisinopril] 40 MG Tablet) PO SCH (09:00)
[2021-07-23] MEDS ORDERED: Enoxaparin Sodium 40 MG/0.4 ML SYRINGE SC SCH (09:00)
[2021-07-23] MEDS ORDERED: Lisinopril/Hydrochlorothiazide 20 mg/12.5 mg Tablet PO SCH (09:00)
[2021-07-23] MEDS ORDERED: Amlodipine 5 MG TAB PO SCH (09:00)
[2021-07-23] MEDS ORDERED: Lisinopril 20 MG TAB PO SCH (09:00)
[2021-07-23 11:24] VITALS: TEMP 97.5
[2021-07-23 12:23] VITALS: BP 155/98
== END 2021-07-23 13:15 | disposition home or self-care (01) ==
LOC: ERS 15:07 → 2SE 18:21
PROVIDERS: ADMIT Family Medicine; ATTEND Hospitalist
DX: J44.1 Chronic obstructive pulmonary disease with (acute) exacerbation (principal); I10 Essential (primary) hypertension; F17.210 Nicotine dependence, cigarettes, uncomplicated; Z87.11 Personal history of peptic ulcer disease; Z79.899 Other long term (current) drug therapy; Z20.822 Contact with and (suspected) exposure to COVID-19
CPT/HCPCS: 71045; 80053 ×2; 81003; 83605; 83735; 83880; 84145; 84484; 85025 ×2; 85379; 86803; 87040; 87086; 87449; 87899; 93005; 94640 ×4; 96372; 96375; 97139; G0378 ×3; U0002; 36415; J0456; J1650; J1956; J2930; J3475; J7050; J7620

== ENCOUNTER 2021-09-25 09:40 | Emergency (ER) | payer MEDICARE, MEDICAID ==
[2021-09-25 10:41] LABS: #Eosinphils 0.1 thou/uL (0.0-0.7); #Lymphocytes 2.6 thou/uL (1.20-3.40); #Monocytes 0.5 thou/uL (0.11-0.59); #Neutrophils 5.9 thou/uL (1.40-6.50); %Basophils 0.3 % (0.0-1.0); %Eosinophils 1.2 % (0.0-10.0); %Lymphocytes 28.5 % (21.0-51.0); %Monocytes 5.7 % (0.0-10.0); %Neutrophils 64.3 % (42.0-75.0); Hemoglobin 16.7 g/dL (12.0-16.0); Mean Corpuscular HGB CONC 32.7 g/dL (32.0-36.0); Mean Corpuscular Hemoglobin 31.3 pg (27.0-31.0); Mean Corpuscular Volume 95.5 fL (78.0-98.0); Mean Platelet Volume 7.7 fL (7.4-10.4); Platelet Count 213 thou/uL (130-400); RBC Distribution Width 13.3 % (11.5-14.5); Red Blood Cell (RBC) Count 5.33 mill/uL (4.20-5.40); White Blood Cell (WBC) Count 9.2 thou/uL (4.8-10.8)
[2021-09-25 10:56] LABS: ALT (SGPT) 13 U/L (8-55); AST (SGOT) 22 U/L (5-34); Albumin 3.9 g/dL (3.4-4.8); Alkaline Phosphatase 66 U/L (40-110); Anion Gap 12 mmol/L (10-20); BUN (Urea Nitrogen) 8 mg/dL (9.8-20.1); Bilirubin, Total 0.5 mg/dL (0.2-1.2); Calc. Creatinine Clearance 0 mL/min (70-130); Calcium 9.5 mg/dL (7.8-10.44); Carbon Dioxide 22 mmol/L (23-31); Chloride 107 mmol/L (98-107); Globulin 3.2 g/dL (2.4-3.5); Glucose 98 mg/dL (80-115); Potassium 4.3 mmol/L (3.5-5.1); Protein, Total 7.1 g/dL (5.8-8.1); Sodium 137 mmol/L (136-145)
[2021-09-25] MEDS ORDERED: Ketorolac Tromethamine 30 MG/ML VIAL ONE (11:32)
== END 2021-09-25 12:24 | disposition home or self-care (01) ==
LOC: ERS 09:40
DX: J44.1 Chronic obstructive pulmonary disease with (acute) exacerbation (principal); I10 Essential (primary) hypertension; F17.210 Nicotine dependence, cigarettes, uncomplicated
CPT/HCPCS: 71045; 80053; 83880; 84484; 85025; 93005; 96374; J1885

== ENCOUNTER 2022-01-18 08:19 | Outpatient (CLI) | payer MEDICARE, MEDICAID | END 2022-01-18 08:20 | disposition home or self-care (01) | LOC: BICMAMMO 08:19 | PROVIDERS: ATTEND Nurse Practitioner Family | DX: Z12.31 Encounter for screening mammogram for malignant neoplasm of breast (principal); Z91.89 Other specified personal risk factors, not elsewhere classified | CPT/HCPCS: 77063; 77067 ==

== ENCOUNTER 2022-06-06 07:28 | Emergency (ER) | payer OTHER ==
[2022-06-06 08:03] LABS: #Basophils 0.1 thou/uL (0.0-0.2); #Eosinphils 0.1 thou/uL (0.0-0.7); #Lymphocytes 2.5 thou/uL (1.20-3.40); #Monocytes 0.9 thou/uL (0.11-0.59); #Neutrophils 10.6 thou/uL (1.40-6.50); %Basophils 0.8 % (0.0-1.0); %Eosinophils 0.8 % (0.0-10.0); %Lymphocytes 17.4 % (21.0-51.0); %Monocytes 6.6 % (0.0-10.0); %Neutrophils 74.4 % (42.0-75.0); Hemoglobin 16.8 g/dL (12.0-16.0); Mean Corpuscular HGB CONC 34.2 g/dL (32.0-36.0); Mean Corpuscular Hemoglobin 32.8 pg (27.0-31.0); Mean Corpuscular Volume 95.9 fL (78.0-98.0); Mean Platelet Volume 7.4 fL (7.4-10.4); Platelet Count 212 thou/uL (130-400); RBC Distribution Width 12.5 % (11.5-14.5); Red Blood Cell (RBC) Count 5.11 mill/uL (4.20-5.40); White Blood Cell (WBC) Count 14.2 thou/uL (4.8-10.8)
[2022-06-06 08:24] LABS: ALT (SGPT) 22 U/L (8-55); AST (SGOT) 29 U/L (5-34); Albumin 4.5 g/dL (3.4-4.8); Alkaline Phosphatase 58 U/L (40-110); Anion Gap 13 mmol/L (10-20); BUN (Urea Nitrogen) 8 mg/dL (9.8-20.1); Bilirubin, Total 1.3 mg/dL (0.2-1.2); Calc. Creatinine Clearance 0 mL/min (70-130); Calcium 9.6 mg/dL (7.8-10.44); Carbon Dioxide 27 mmol/L (23-31); Chloride 102 mmol/L (98-107); Estimated GFR 97; Globulin 3.1 g/dL (2.4-3.5); Glucose 97 mg/dL (80-115); Lipase 52 U/L (8-78); Potassium 4.3 mmol/L (3.5-5.1); Protein, Total 7.6 g/dL (5.8-8.1); Sodium 138 mmol/L (136-145)
[2022-06-06] MEDS ORDERED: Ondansetron PF 4 MG/2 ML Vial ONE (08:45)
[2022-06-06] MEDS ORDERED: Morphine 4 MG/ML VIAL ONE (08:45)
[2022-06-06] MEDS ORDERED: Aspirin Chewable 81 MG TAB ONE ×2 (08:45→08:57)
[2022-06-06] MEDS ORDERED: Iopamidol-370 76% 500 ML 1 ML ONE (09:18)
== END 2022-06-06 11:32 | disposition home or self-care (01) ==
LOC: ERS 07:28
DX: J18.9 Pneumonia, unspecified organism (principal); J44.9 Chronic obstructive pulmonary disease, unspecified; I10 Essential (primary) hypertension; F17.210 Nicotine dependence, cigarettes, uncomplicated; Z79.899 Other long term (current) drug therapy
CPT/HCPCS: 71045; 71275; 80053; 83690; 84484; 85025; 93005; 94760; 96365; 96375; J1956; J2270; J2405; Q9967

== ENCOUNTER 2022-06-24 14:11 | Inpatient (IN) | payer OTHER, MEDICAID ==
[2022-06-24 14:49] LABS: #Lymphocytes 2.1 thou/uL (1.20-3.40); #Monocytes 0.9 thou/uL (0.11-0.59); #Neutrophils 9.9 thou/uL (1.40-6.50); %Basophils 0.2 % (0.0-1.0); %Eosinophils 0.3 % (0.0-10.0); %Monocytes 7.2 % (0.0-10.0); %Neutrophils 76.2 % (42.0-75.0); Hemoglobin 16.3 g/dL (12.0-16.0); Mean Corpuscular Hemoglobin 31.8 pg (27.0-31.0); Mean Corpuscular Volume 96.4 fL (78.0-98.0); Mean Platelet Volume 8.1 fL (7.4-10.4); Platelet Count 234 thou/uL (130-400); RBC Distribution Width 12.7 % (11.5-14.5); Red Blood Cell (RBC) Count 5.11 mill/uL (4.20-5.40)
[2022-06-24] MEDS ORDERED: Azithromycin 500 MG VIAL ONE (15:00)
[2022-06-24] MEDS ORDERED: methylPREDNISolone Sod Succ/PF 125 MG/2 ML VIAL ONE (15:00)
[2022-06-24] MEDS ORDERED: Magnesium 2 GM/50 ML BAG (IN WATER) ONE (15:00)
[2022-06-24] MEDS ORDERED: cefTRIAXone\\ROCEPHIN 1 GM VIAL ONE (15:00)
[2022-06-24 15:04] LABS: ALT (SGPT) 11 U/L (8-55); AST (SGOT) 17 U/L (5-34); Albumin 4.3 g/dL (3.4-4.8); Alkaline Phosphatase 61 U/L (40-110); Anion Gap 14 mmol/L (10-20); BUN (Urea Nitrogen) 10 mg/dL (9.8-20.1); Calc. Creatinine Clearance 0 mL/min (70-130); Calcium 9.6 mg/dL (7.8-10.44); Carbon Dioxide 26 mmol/L (23-31); Chloride 101 mmol/L (98-107); Estimated GFR 86; Glucose 100 mg/dL (80-115); Lipase 43 U/L (8-78); Magnesium 2.1 mg/dL (1.6-2.6); Potassium 3.8 mmol/L (3.5-5.1); Protein, Total 7.3 g/dL (5.8-8.1); Sodium 137 mmol/L (136-145)
[2022-06-24 15:22] LABS: Actual Bicarbonate (HCO3v) 27 mEq/L (22-28); Analyzer IN Cardio ER; Base Excess 1.9 mEq/L (-2.0 to +3.0); Chloride (VBG) 102 mmol/L (98-106); Hemoglobin (Hb) 15.9 g/dL (11.7-16.1); Potassium (VBG) 3.65 mmol/L (3.70-5.30); Sodium 129.4 mmol/L (133-146)
[2022-06-24] MEDS ORDERED: Morphine 4 MG/ML VIAL ONE (16:02)
[2022-06-24] MEDS ORDERED: Ondansetron PF 4 MG/2 ML Vial ONE (16:02)
[2022-06-24] MEDS ORDERED: HYDROcodone/Acetaminophen 5/325 mg Tablet PO PRN (16:31)
[2022-06-24 16:33] LABS: Bilirubin Negative (Negative); Blood, Urine Negative (Negative); Clarity Clear (Clear); Glucose, Urine (Dipstick) Normal (Negative); Ketone, Urine Trace mg/dL (Negative); Leukocyte 75 Leu/uL (Negative); Nitrite Negative (Negative); Protein, Urine (Dipstick) Negative (Neg-Trace); RBC/HPF 0-3 HPF (0-3); Specific Gravity, Urine 1.017 (1.002-1.036); Squamous Epithelial 0-3 HPF (0-3); Urobilinogen Normal mg/dL (Less than 2); pH, Urine 6.5 (5.0-9.0)
[2022-06-24 16:34] LABS: Bacteria/HPF Rare-Few HPF (None Seen)
[2022-06-24] MEDS ORDERED: hydrALAZINE 20 MG/ML VIAL SLOW IVP PRN (16:40)
[2022-06-24] MEDS ORDERED: Nicotine 21 MG PATCH TD SCH (17:00)
[2022-06-24 17:03] LABS: SARS-CoV-2 NAA Rapid Test DETECTED (NotDetected)
[2022-06-24] MEDS ORDERED: Ipratropium/Albuterol Sulfate 4 GM AER IH PRN (17:14)
[2022-06-24] MEDS ORDERED: Albuterol 200 PUFF (6.7GM INHALER) ONE (17:33)
[2022-06-24 18:22] VITALS: BMI 20.5
[2022-06-24] MEDS: Acetaminophen 325 MG TAB PO PRN (19:24)
[2022-06-24] MEDS: guaiFENesin ER 600 MG TAB PO SCH (20:11)
[2022-06-24] MEDS: methylPREDNISolone Sod Succ 40 MG VIAL IVP SCH (20:11)
[2022-06-24] MEDS: Ipratropium/Albuterol Sulfate 4 GM AER IH SCH (21:01)
[2022-06-25] MEDS: Ipratropium/Albuterol Sulfate 4 GM AER IH SCH ×2 (01:38→06:04)
[2022-06-25] MEDS: methylPREDNISolone Sod Succ 40 MG VIAL IVP SCH ×2 (03:12→09:22)
[2022-06-25 03:59] LABS: #Lymphocytes 0.5 thou/uL (1.20-3.40); #Monocytes 0.1 thou/uL (0.11-0.59); #Neutrophils 7.2 thou/uL (1.40-6.50); %Lymphocytes 6.8 % (21.0-51.0); %Neutrophils 92.1 % (42.0-75.0); Hemoglobin 14.7 g/dL (12.0-16.0); Mean Corpuscular HGB CONC 32.1 g/dL (32.0-36.0); Mean Corpuscular Hemoglobin 31.4 pg (27.0-31.0); Mean Corpuscular Volume 97.8 fL (78.0-98.0); Mean Platelet Volume 7.7 fL (7.4-10.4); Platelet Count 204 thou/uL (130-400); RBC Distribution Width 12.7 % (11.5-14.5); White Blood Cell (WBC) Count 7.9 thou/uL (4.8-10.8)
[2022-06-25 04:21] LABS: Anion Gap 10 mmol/L (10-20); BUN (Urea Nitrogen) 9 mg/dL (9.8-20.1); Calc. Creatinine Clearance 75 mL/min (70-130); Carbon Dioxide 26 mmol/L (23-31); Chloride 105 mmol/L (98-107); Potassium 4.3 mmol/L (3.5-5.1); Sodium 137 mmol/L (136-145)
[2022-06-25 04:22] LABS: Calcium 8.3 mg/dL (7.8-10.44); Estimated GFR 98; Glucose 173 mg/dL (80-115)
[2022-06-25] MEDS: Acetaminophen 325 MG TAB PO PRN (04:37)
[2022-06-25] MEDS ORDERED: Loratadine 10 MG TAB PO PRN (07:39)
[2022-06-25 08:00] VITALS: TEMP 97.2
[2022-06-25] MEDS ORDERED: Famotidine 20 MG TAB PO SCH (09:00)
[2022-06-25] MEDS ORDERED: Amlodipine 5 MG TAB PO SCH (09:00)
[2022-06-25] MEDS: guaiFENesin ER 600 MG TAB PO SCH (09:22)
[2022-06-25] MEDS ORDERED: Pharmacy to Dose REMDESIVIR IVPB PRN (10:26)
[2022-06-25 11:55] VITALS: BP 138/82
[2022-06-25] MEDS ORDERED: cefTRIAXone\\ROCEPHIN 1 GM in Sodium Chloride 0.9% 100 ML IVPB SCH (14:00)
[2022-06-25] MEDS ORDERED: Azithromycin 500 MG in Sodium Chloride 0.9% 250 ML 250 ML IVPB SCH (15:00)
[2022-06-25] MEDS ORDERED: Mometasone 200 MCG/PUFF (1 INHALER) INH SCH (18:30)
[2022-06-25] MEDS ORDERED: Cefdinir 300 MG CAP PO SCH (21:00)
== END 2022-06-25 15:31 | disposition home or self-care (01) | DRG 192 ==
LOC: ERS 14:11 → ERHOLD 16:31 → IMCU/EMU 18:06
PROVIDERS: ADMIT Family Medicine; ATTEND Internal Medicine
DX: J44.1 Chronic obstructive pulmonary disease with (acute) exacerbation (principal); Z20.822 Contact with and (suspected) exposure to COVID-19; I10 Essential (primary) hypertension; F17.210 Nicotine dependence, cigarettes, uncomplicated; Z79.51 Long term (current) use of inhaled steroids; Z79.899 Other long term (current) drug therapy; Z87.01 Personal history of pneumonia (recurrent)
CPT/HCPCS: 36415; 71045; 80048; 80053; 81003; 81015; 82805; 83605; 83690; 83735; 83880; 84484; 85025; 85379; 86140; 87040; 93005; J0456; J0696; J2270; J2405; J2920; J2930; J3475; J7620; U0002

== ENCOUNTER 2023-07-18 09:03 | Outpatient (CLI) | payer OTHER, MEDICAID ==
[2023-07-18] MEDS ORDERED: Iopamidol 370 76% 100 ML VIAL ONE (09:26)
== END 2023-07-18 09:04 | disposition home or self-care (01) ==
LOC: CT 09:03
PROVIDERS: ATTEND Nurse Practitioner Family
DX: R91.8 Other nonspecific abnormal finding of lung field (principal); J18.1 Lobar pneumonia, unspecified organism; J40 Bronchitis, not specified as acute or chronic; K55.1 Chronic vascular disorders of intestine
CPT/HCPCS: 71275; 82565

== ENCOUNTER 2023-09-23 01:00 | Inpatient (IN) | payer OTHER, MEDICAID ==
[2023-09-23] MEDS ORDERED: methylPREDNISolone Sod Succ/PF 125 MG/2 ML VIAL ONE (01:35)
[2023-09-23] MEDS ORDERED: Magnesium 2 GM/50 ML BAG (IN WATER) ONE (01:35)
[2023-09-23 01:37] LABS: #Monocytes 0.8 thou/uL (0.11-0.59); #Neutrophils 8.9 thou/uL (1.40-6.50); %Basophils 0.2 % (0.0-1.0); %Eosinophils 0.2 % (0.0-10.0); %Lymphocytes 23.8 % (21.0-51.0); %Monocytes 5.9 % (0.0-10.0); %Neutrophils 69.6 % (42.0-75.0); Hematocrit 46.6 % (36.0-47.0); Hemoglobin 16.3 g/dL (12.0-16.0); Mean Corpuscular Hemoglobin 31.8 pg (27.0-31.0); Mean Platelet Volume 9.3 fL (7.4-10.4); Platelet Count 261 10x3/uL (130-400); RBC Distribution Width 13.3 % (11.5-14.5); Red Blood Cell (RBC) Count 5.12 mill/uL (4.20-5.40); White Blood Cell (WBC) Count 12.8 10x3/uL (4.8-10.8)
[2023-09-23 01:51] LABS: Actual Bicarbonate (HCO3v) 27.1 mEq/L (22-28); Analyzer IN Cardio ER; Base Excess 2.3 mEq/L (-2.0 to +3.0); Calcium, Ionized (venous) 1.14 mmol/L (1.16-1.32); Chloride (VBG) 101 mmol/L (98-106); Hematocrit-VBG 47 % (36.0-47.0); Hemoglobin (Hb) 15.9 g/dL (11.7-16.1); Potassium (VBG) 3.74 mmol/L (3.70-5.30); Sodium 140 mmol/L (133-146); pH (venous) 7.421 (7.32-7.43)
[2023-09-23 02:00] LABS: ALT (SGPT) 18 U/L (8-55); AST (SGOT) 21 U/L (5-34); Albumin 4.4 g/dL (3.4-4.8); Alkaline Phosphatase 47 U/L (40-110); Anion Gap 13 mmol/L (10-20); BUN (Urea Nitrogen) 9 mg/dL (9.8-20.1); Bilirubin, Total 0.4 mg/dL (0.2-1.2); Calc. Creatinine Clearance 0 mL/min (70-130); Carbon Dioxide 29 mmol/L (23-31); Chloride 103 mmol/L (98-107); Estimated GFR 95; Globulin 2.8 g/dL (2.4-3.5); Glucose 94 mg/dL (80-115); Potassium 3.9 mmol/L (3.5-5.1); Protein, Total 7.2 g/dL (5.8-8.1); Sodium 141 mmol/L (136-145)
[2023-09-23 02:02] LABS: Troponin I Less than 0.010 ng/mL (< 0.028)
[2023-09-23 02:47] LABS: SARS-CoV-2 NAA Rapid Test Not Detected (NotDetected)
[2023-09-23 02:56] LABS: Magnesium 3.5 mg/dL (1.6-2.6)
[2023-09-23 02:58] LABS: Bacteria/HPF None Seen HPF (None Seen); Bilirubin Negative (Negative); Blood, Urine Negative (Negative); CAUTI Indications for Culture Alt mental st,lethar; Clarity Clear (Clear); Glucose, Urine (Dipstick) Normal (Negative); Ketone, Urine Negative (Negative); Leukocyte Negative Leu/uL (Negative); Nitrite Negative (Negative); Protein, Urine (Dipstick) 30 mg/dL (Neg-Trace); RBC/HPF None Seen HPF (0-3); Urobilinogen Normal mg/dL (Less than 2); WBC/HPF 0-3 HPF (0-3)
[2023-09-23] MEDS ORDERED: cefTRIAXone (ROCEPHIN) 2 GM VIAL ONE (03:03)
[2023-09-23] MEDS ORDERED: Sodium Chloride 0.9% 100 ML ONE (03:03)
[2023-09-23 03:04] LABS: Urine Culture Reflex No No
[2023-09-23] MEDS ORDERED: Ipratropium/Albuterol 3 ML NEB ONE ×2 (03:06→03:44)
[2023-09-23] MEDS ORDERED: Albuterol 2.5 MG (0.5 mL) NEB ONE ×2 (03:06→03:44)
[2023-09-23] MEDS ORDERED: Acetaminophen 500 MG TAB ONE (03:44)
[2023-09-23] MEDS ORDERED: Ondansetron PF 4 MG/2 ML Vial IVP PRN (04:07)
[2023-09-23] MEDS ORDERED: Acetaminophen 325 MG TAB PO PRN (04:07)
[2023-09-23] MEDS ORDERED: Ipratropium/Albuterol 3 ML NEB EZPAP PRN (04:08)
[2023-09-23] MEDS ORDERED: Azithromycin 500 MG VIAL ONE (04:26)
[2023-09-23] MEDS ORDERED: Azithromycin 500 MG in Sodium Chloride 0.9% 250 ML 250 ML IVPB SCH (05:30)
[2023-09-23 05:40] VITALS: BMI 23.0
[2023-09-23] MEDS: Ipratropium/Albuterol 3 ML NEB NEB SCH ×5 (06:56→22:46)
[2023-09-23] MEDS: Amlodipine 10 MG TAB PO SCH (08:42)
[2023-09-23] MEDS ORDERED: Enoxaparin 30 MG (0.3 mL) SYRINGE SC SCH (09:00)
[2023-09-23] MEDS ORDERED: Non-Formulary Item 1 EACH (Lisinopril [Zestril] 40 MG Tablet) PO SCH (09:00)
[2023-09-23] MEDS ORDERED: Non-Formulary Item 1 EACH (Fluticasone Propion/Salmeterol [Advair Diskus 250/50] 1 EACH B IH SCH (09:00)
[2023-09-23] MEDS: Lisinopril 20 MG TAB PO SCH (09:29)
[2023-09-23] MEDS: methylPREDNISolone Sod Succ 40 MG VIAL IVP SCH ×2 (09:29→17:14)
[2023-09-23] MEDS ORDERED: Melatonin 3 MG TAB PO PRN (16:44)
[2023-09-23] MEDS ORDERED: Simvastatin 5 MG TAB PO SCH (21:00)
[2023-09-23] MEDS ORDERED: Pravastatin Sodium 20 MG TAB PO SCH (21:00)
[2023-09-23] MEDS ORDERED: Montelukast Sodium 10 mg Tablet PO SCH (21:00)
[2023-09-23] MEDS: Mometasone 200 MCG/Formoterol 5 MCG 120 PUFF INHALER INH SCH (22:44)
[2023-09-24] MEDS: methylPREDNISolone Sod Succ 40 MG VIAL IVP SCH ×2 (01:21→08:19)
[2023-09-24] MEDS: Ipratropium/Albuterol 3 ML NEB NEB SCH ×2 (02:37→07:33)
[2023-09-24] MEDS ORDERED: cefTRIAXone\\ROCEPHIN 1 GM in Sodium Chloride 0.9% 100 ML IVPB SCH (03:00)
[2023-09-24] MEDS ORDERED: Azithromycin 500 MG in Sodium Chloride 0.9% 250 ML 250 ML IVPB SCH (05:00)
[2023-09-24 06:19] LABS: #Monocytes 0.3 thou/uL (0.11-0.59); #Neutrophils 13.9 thou/uL (1.40-6.50); %Basophils 0.1 % (0.0-1.0); %Lymphocytes 5.3 % (21.0-51.0); %Monocytes 2.1 % (0.0-10.0); Hematocrit 45.3 % (36.0-47.0); Hemoglobin 15.3 g/dL (12.0-16.0); Mean Corpuscular HGB CONC 33.8 g/dL (32.0-36.0); Mean Corpuscular Volume 91.7 fl (78.0-98.0); Mean Platelet Volume 9.6 fL (7.4-10.4); Platelet Count 251 10x3/uL (130-400); RBC Distribution Width 13.4 % (11.5-14.5); Red Blood Cell (RBC) Count 4.94 mill/uL (4.20-5.40); White Blood Cell (WBC) Count 15.1 10x3/uL (4.8-10.8)
[2023-09-24 06:40] LABS: Anion Gap 13 mmol/L (10-20); BUN (Urea Nitrogen) 13 mg/dL (9.8-20.1); Calc. Creatinine Clearance 74 mL/min (70-130); Calcium 8.8 mg/dL (7.8-10.44); Carbon Dioxide 26 mmol/L (23-31); Chloride 102 mmol/L (98-107); Estimated GFR 95; Glucose 129 mg/dL (80-115); Potassium 4.4 mmol/L (3.5-5.1); Sodium 137 mmol/L (136-145)
[2023-09-24] MEDS: Mometasone 200 MCG/Formoterol 5 MCG 120 PUFF INHALER INH SCH (07:31)
[2023-09-24 07:41] VITALS: BP 128/82; TEMP 97.5
[2023-09-24] MEDS: Amlodipine 10 MG TAB PO SCH (08:19)
[2023-09-24] MEDS: Lisinopril 20 MG TAB PO SCH (08:19)
[2023-09-24] MEDS ORDERED: Enoxaparin 40 MG (0.4 mL) SYRINGE SC SCH (09:00)
== END 2023-09-24 10:44 | disposition home or self-care (01) | DRG 189 ==
LOC: ERS 01:00 → T4-B 04:01
PROVIDERS: ADMIT Internal Medicine; ATTEND Internal Medicine
DX: J96.01 Acute respiratory failure with hypoxia (principal); J44.1 Chronic obstructive pulmonary disease with (acute) exacerbation; J45.901 Unspecified asthma with (acute) exacerbation; I10 Essential (primary) hypertension; F17.210 Nicotine dependence, cigarettes, uncomplicated; Z79.51 Long term (current) use of inhaled steroids; Z79.899 Other long term (current) drug therapy; Z11.52 Encounter for screening for COVID-19
CPT/HCPCS: 36415; 71045; 80048; 80053; 81001; 82805; 83605; 83735; 83880; 84484; 85025; 85379; 87040; 93005; 94760; 96365; 96367; 96375; J0456; J0696; J1650; J2920; J2930; J3475; J3490; J7050; J7611; J7620

== ENCOUNTER 2023-11-06 11:04 | Inpatient (IN) | payer OTHER, MEDICAID ==
[2023-11-06 12:05] LABS: #Basophils 0.1 thou/uL (0.0-0.2); #Monocytes 1.1 thou/uL (0.11-0.59); #Neutrophils 22.2 thou/uL (1.40-6.50); %Basophils 0.3 % (0.0-1.0); %Lymphocytes 5.2 % (21.0-51.0); %Monocytes 4.4 % (0.0-10.0); %Neutrophils 89.4 % (42.0-75.0); Hematocrit 40.6 % (36.0-47.0); Hemoglobin 14.3 g/dL (12.0-16.0); Mean Corpuscular HGB CONC 35.2 g/dL (32.0-36.0); Mean Corpuscular Hemoglobin 31.6 pg (27.0-31.0); Mean Corpuscular Volume 89.6 fl (78.0-98.0); Mean Platelet Volume 9.9 fL (7.4-10.4); Platelet Count 207 10x3/uL (130-400); RBC Distribution Width 13.8 % (11.5-14.5); Red Blood Cell (RBC) Count 4.53 mill/uL (4.20-5.40); White Blood Cell (WBC) Count 24.8 10x3/uL (4.8-10.8)
[2023-11-06 12:19] LABS: INR-International Normal Ratio 0.9; PTT 29.5 sec (22.9-36.1); Prothrombin Time 12.5 sec (12.0-14.7)
[2023-11-06] MEDS ORDERED: cefTRIAXone (ROCEPHIN) 2 GM VIAL ONE (12:23)
[2023-11-06] MEDS ORDERED: methylPREDNISolone Sod Succ/PF 125 MG/2 ML VIAL ONE (12:23)
[2023-11-06] MEDS ORDERED: Sodium Chloride 0.9% 100 ML ONE (12:23)
[2023-11-06 12:40] LABS: Albumin 4.2 g/dL (3.4-4.8)
[2023-11-06 12:41] LABS: Calcium 9.2 mg/dL (7.8-10.44); Chloride 99 mmol/L (98-107); Potassium 3.9 mmol/L (3.5-5.1); Sodium 136 mmol/L (136-145)
[2023-11-06 12:42] LABS: Globulin 2.2 g/dL (2.4-3.5); Glucose 108 mg/dL (80-115); Protein, Total 6.4 g/dL (5.8-8.1)
[2023-11-06 12:44] LABS: Anion Gap 13 mmol/L (10-20); Bilirubin, Total 1.1 mg/dL (0.2-1.2); Carbon Dioxide 28 mmol/L (23-31)
[2023-11-06 12:45] LABS: Alkaline Phosphatase 43 U/L (40-110)
[2023-11-06 12:46] LABS: BUN (Urea Nitrogen) 13 mg/dL (9.8-20.1); Calc. Creatinine Clearance 0 mL/min (70-130); Estimated GFR 83
[2023-11-06 12:47] LABS: AST (SGOT) 20 U/L (5-34); Troponin I Less than 0.010 ng/mL (< 0.028)
[2023-11-06 12:48] LABS: ALT (SGPT) 14 U/L (8-55)
[2023-11-06 13:01] LABS: SARS-CoV-2 NAA Rapid Test Not Detected (NotDetected)
[2023-11-06] MEDS ORDERED: Azithromycin 500 MG VIAL ONE (14:32)
[2023-11-06] MEDS ORDERED: Ondansetron PF 4 MG/2 ML Vial IVP PRN (14:38)
[2023-11-06] MEDS ORDERED: Acetaminophen 325 MG TAB PO PRN (14:38)
[2023-11-06] MEDS: Ipratropium/Albuterol 3 ML NEB NEB SCH (18:43)
[2023-11-06] MEDS ORDERED: Acetaminophen 325 MG TAB ONE (19:23)
[2023-11-06 21:19] VITALS: BMI 19.4
[2023-11-06] MEDS: methylPREDNISolone Sod Succ 40 MG VIAL IVP SCH (21:48)
[2023-11-07] MEDS ORDERED: Ipratropium/Albuterol 3 ML NEB ONE (01:17)
[2023-11-07 06:18] LABS: #Monocytes 0.3 thou/uL (0.11-0.59); #Neutrophils 22.8 thou/uL (1.40-6.50); %Basophils 0.1 % (0.0-1.0); %Lymphocytes 3.1 % (21.0-51.0); %Monocytes 1.2 % (0.0-10.0); %Neutrophils 94.2 % (42.0-75.0); Hematocrit 40.8 % (36.0-47.0); Hemoglobin 13.7 g/dL (12.0-16.0); Mean Corpuscular HGB CONC 33.6 g/dL (32.0-36.0); Mean Corpuscular Hemoglobin 31.6 pg (27.0-31.0); Mean Platelet Volume 10.2 fL (7.4-10.4); Platelet Count 222 10x3/uL (130-400); Red Blood Cell (RBC) Count 4.33 mill/uL (4.20-5.40); White Blood Cell (WBC) Count 24.2 10x3/uL (4.8-10.8)
[2023-11-07 06:29] LABS: Mean Corpuscular Volume 94.2 fl (78.0-98.0)
[2023-11-07 06:51] LABS: Anion Gap 11 mmol/L (10-20); BUN (Urea Nitrogen) 8 mg/dL (9.8-20.1); Calc. Creatinine Clearance 69 mL/min (70-130); Calcium 9.1 mg/dL (7.8-10.44); Carbon Dioxide 27 mmol/L (23-31); Chloride 105 mmol/L (98-107); Estimated GFR 96; Glucose 148 mg/dL (80-115); Potassium 3.7 mmol/L (3.5-5.1); Sodium 139 mmol/L (136-145)
[2023-11-07] MEDS: Enoxaparin 40 MG (0.4 mL) SYRINGE SC SCH (08:59)
[2023-11-07] MEDS ORDERED: Albuterol 200 PUFF (6.7GM INHALER) INH PRN (09:13)
[2023-11-07] MEDS: Lisinopril 20 MG TAB PO SCH (10:17)
[2023-11-07] MEDS: Amlodipine 5 MG TAB PO SCH (10:17)
[2023-11-07] MEDS: cefTRIAXone\\ROCEPHIN 1 GM in Sodium Chloride 0.9% 100 ML IVPB SCH (12:25)
[2023-11-07] MEDS: Azithromycin 500 MG in Sodium Chloride 0.9% 250 ML 250 ML IVPB SCH (18:00)
[2023-11-07] MEDS: Mometasone 200 MCG/Formoterol 5 MCG 120 PUFF INHALER INH SCH (19:41)
[2023-11-07] MEDS: guaiFENesin ER 600 MG TAB PO SCH (20:03)
[2023-11-07] MEDS: Famotidine 20 MG TAB PO SCH (20:03)
[2023-11-07] MEDS: Melatonin 3 MG TAB PO PRN (20:03)
[2023-11-07] MEDS: Montelukast Sodium 10 mg Tablet PO SCH (20:03)
[2023-11-07] MEDS ORDERED: Pravastatin Sodium 20 MG TAB PO SCH (21:00)
[2023-11-07] MEDS ORDERED: Non-Formulary Item 1 EACH (Fluticasone Propion/Salmeterol [Advair Diskus 250/50] 1 EACH B IH SCH (21:00)
[2023-11-07] MEDS: Simvastatin 5 MG TAB PO SCH (23:45)
[2023-11-08 07:34] VITALS: BP 155/82; TEMP 97.5
[2023-11-08] MEDS: predniSONE 20 MG TAB PO SCH (09:15)
[2023-11-08] MEDS: Amlodipine 5 MG TAB PO SCH (09:16)
[2023-11-08] MEDS: Lisinopril 20 MG TAB PO SCH (09:18)
== END 2023-11-08 11:09 | disposition home or self-care (01) | DRG 871 ==
LOC: ERS 11:04 → ERHOLD 13:46 → T4-B 21:15
PROVIDERS: ADMIT Internal Medicine; ATTEND Internal Medicine
DX: A41.50 Gram-negative sepsis, unspecified (principal); J15.69 Pneumonia due to other Gram-negative bacteria; J44.1 Chronic obstructive pulmonary disease with (acute) exacerbation; J44.0 Chronic obstructive pulmonary disease with (acute) lower respiratory infection; F17.210 Nicotine dependence, cigarettes, uncomplicated; E78.5 Hyperlipidemia, unspecified; I10 Essential (primary) hypertension; Z79.51 Long term (current) use of inhaled steroids; Z79.899 Other long term (current) drug therapy; Z98.890 Other specified postprocedural states; Z71.6 Tobacco abuse counseling; Z11.52 Encounter for screening for COVID-19
CPT/HCPCS: 36415; 71045; 80048; 80053; 83605; 83880; 84484; 85025; 85610; 85730; 87040; 93005; 94640; 94760; 96365; 96367; 96375; J0456; J0696; J1650; J2920; J2930; J3490; J7050; J7512; J7620

== ENCOUNTER 2024-04-02 07:30 | Outpatient (CLI) | payer OTHER, MEDICAID | END 2024-04-02 07:31 | disposition home or self-care (01) | LOC: BICMAMMO 07:30 | PROVIDERS: ATTEND Nurse Practitioner Family | DX: Z12.31 Encounter for screening mammogram for malignant neoplasm of breast (principal); Z13.820 Encounter for screening for osteoporosis; M85.89 Other specified disorders of bone density and structure, multiple sites; Z78.0 Asymptomatic menopausal state | CPT/HCPCS: 77063; 77067; 77080 ==

== ENCOUNTER 2024-07-17 16:16 | Emergency (ER) | payer OTHER, MEDICAID ==
[~2024-07-17 16:16] MED LIST changes: +Iopamidol-370 76% 500 ML MDV (1 ML CHARGE) ONE; -Rabies Vaccine Human 2.5 UNITS VIAL IM ONE
[2024-07-17 17:00] LABS: #Basophils 0.06 10x3/uL (0.0-0.2); #Eosinophils Less than 0.03 10x3/uL (0.0-0.7); %Basophils 0.3 % (0.0-1.0); %Eosinophils 0.1 % (0.0-10.0); %Monocytes 6.7 % (0.0-10.0); %Neutrophils 80.3 % (42.0-75.0); Hematocrit 40.9 % (36.0-47.0); Hemoglobin 14.2 g/dL (12.0-16.0); Mean Corpuscular HGB CONC 34.7 g/dL (32.0-36.0); Mean Corpuscular Hemoglobin 31.1 pg (27.0-31.0); Mean Corpuscular Volume 89.5 fL (78.0-98.0); Mean Platelet Volume 9.9 fL (7.4-10.4); Platelet Count 245 10x3/uL (130-400); RBC Distribution Width 13.4 % (11.5-14.5); Red Blood Cell (RBC) Count 4.57 mill/uL (4.20-5.40)
[2024-07-17 17:11] LABS: ALT (SGPT) 12 U/L (8-55); AST (SGOT) 18 U/L (5-34); Alkaline Phosphatase 53 U/L (40-110); Anion Gap 16 mmol/L (10-20); BUN (Urea Nitrogen) 8 mg/dL (9.8-20.1); Bilirubin, Total 0.7 mg/dL (0.2-1.2); Calc. Creatinine Clearance 0 mL/min (70-130); Calcium 9.2 mg/dL (7.8-10.44); Carbon Dioxide 23 mmol/L (23-31); Chloride 99 mmol/L (98-107); Estimated GFR 79; Globulin 2.9 g/dL (2.4-3.5); Glucose 98 mg/dL (80-115); Potassium 3.6 mmol/L (3.5-5.1); Protein, Total 6.9 g/dL (5.8-8.1); Sodium 134 mmol/L (136-145)
[2024-07-17 17:16] LABS: Troponin I 0.019 ng/mL (< 0.028)
[2024-07-17] MEDS ORDERED: methylPREDNISolone Sod Succ/PF 125 MG/2 ML VIAL ONE (19:16)
[2024-07-17] MEDS ORDERED: Ketorolac Tromethamine 30 MG (1 mL) VIAL ONE (19:16)
[2024-07-17] MEDS ORDERED: Ipratropium/Albuterol 3 ML NEB ONE (19:58)
[2024-07-17] MEDS ORDERED: Doxycycline 100 MG CAP ONE (22:50)
== END 2024-07-17 23:05 | disposition home or self-care (01) ==
LOC: ERS 16:16
DX: J18.9 Pneumonia, unspecified organism (principal); I10 Essential (primary) hypertension; J44.89 Other specified chronic obstructive pulmonary disease; Z79.899 Other long term (current) drug therapy
CPT/HCPCS: 71045; 71275; 80053; 83880; 84484; 85025; 93005; 94640; J1885; J2919; 36415; 96374; 96375; J7620; Q9967